=== PATIENT | female | born 1975 | race American Indian/Alaskan Native ===

== ENCOUNTER 2016-10-02 14:38 | Emergency (ER) | payer MEDICARE, OTHER ==
[2016-10-02 14:38] VITALS: BMI 23.2
[2016-10-02 15:00] VITALS: O2SAT 100
--- NOTE | 2016-10-02 15:43 | C.PDOC ---
History Of Present Illness 41 y/o female presents to the emergency department complaining of left chest wall discomfort x 3 days. Patient denies taking any medication for the pain. She denies trauma, shortness of breath, cough, nausea, diaphoresis, abdominal pain, fever, or other complaints. Time Seen by Provider: 10/02/16 15:37 Chief Complaint (Nursing): Chest Pain History Per: Patient History/Exam Limitations: no limitations Onset/Duration Of Symptoms: Days (3), Persistent Current Symptoms Are (Timing): Still Present Recent travel outside of the [place]: No Past Medical History Reviewed: Historical Data, Nursing Documentation, Vital Signs Vital Signs: Last Vital Signs Temp 98.2 F 10/02/16 16:16 Pulse 90 10/02/16 16:16 Resp 18 10/02/16 16:16 BP 159/99 H 10/02/16 16:16 Pulse Ox 100 10/02/16 16:16 - Medical History PMH: Anxiety, Asthma, Diabetes, Seizures (epileptic) Surgical History: Appendectomy - [facility] Procedures CENTRAL VENOUS CATHETER PLACEMENT WITH GUIDANCE (07/08/13) EXCIS DEBRIDE OF WOUND, INFECT, OR BURN (09/29/13) OTHER APPENDECTOMY (07/08/13) PERITONEAL LAVAGE (07/08/13) Family History: States: Unknown Family Hx - Social History Hx Tobacco Use: Yes Hx Alcohol Use: Yes Hx Substance Use: No - Immunization History Hx Tetanus Toxoid Vaccination: No Hx Influenza Vaccination: No Hx Pneumococcal Vaccination: No Review Of Systems Except As Marked, All Systems Reviewed And Found Negative. Constitutional: Negative for: Fever, Sweats Cardiovascular: Positive for: Chest Pain Respiratory: Negative for: Cough, Shortness of Breath Gastrointestinal: Negative for: Nausea, Abdominal Pain Physical Exam - Physical Exam Appears: Non-toxic, No Acute Distress Skin: Normal Color, Warm, Dry, No Rash Head: Atraumatic, Normacephalic Neck: Normal ROM Chest: Symmetrical, Tenderness (left ribs, in the area of T5 mid axillary line) , No Ecchymosis Cardiovascular: Rhythm Regular Respiratory: Normal Breath Sounds, No Rales, No Rhonchi, No Wheezing Gastrointestinal/Abdominal: Normal Exam, Soft, No Tenderness Back: Normal Inspection Extremity: Normal ROM Neurological/Psych: Oriented x3, Normal Speech, Normal Cognition ED Course And Treatment ECG: Interpreted By Me ECG Rhythm: Sinus Rhythm ECG Interpretation: Normal Rate From EC (bpm) O2 Sat by Pulse Oximetry: 100 (ra) Pulse Ox Interpretation: Normal Medical Decision Making Medical Decision Making: Plan: * Zestril PO, Toradol IM, Motrin PO L chest positionally and digitally reproducable c/w costochondritis. normal EKG poorly controlled HTN normal BUN/Creat- defer repeat labs today- start Lisinopril and f/u in 2-3 weeks for re-eval. Disposition Doctor Will See Patient In The: Office Counseled Patient/Family Regarding: Studies Performed, Diagnosis - Disposition Referrals: Antonio Armenta MD [Staff Provider] - Disposition: HOME/ ROUTINE Disposition Time: 15:57 Condition: GOOD Additional Instructions: costochondritis: ice packs to the L chest 1/2 hour per hour, nothing hot. Motrin/Advil 400-600 mg every 6 hours as needed Hypertension Take Lisinopril 20 mg daily (in the morning) and have your BP checked in 2-[address] Armenta. Prescriptions: Lisinopril [Prinivil] 20 mg PO DAILY #30 tablet Instructions: Costochondritis (ED), Hypertension (ED) - Clinical Impression Clinical Impression: Chest discomfort, Hypertension - Scribe Statement The provider has reviewed the documentation as recorded by the Scribe (Josette Zambrano) Provider Attestation: All medical record entries made by the Scribe were at my direction and personally dictated by me. I have reviewed the chart and agree that the record accurately reflects my personal performance of the history, physical exam, medical decision making, and the department course for this patient. I have also personally directed, reviewed, and agree with the discharge instructions and disposition.
[2016-10-02 16:17] VITALS: BP 159/99; PULSE 90; RESP 18; TEMP 98.2
--- NOTE | 2016-10-14 12:34 | CARD ---
APPROVED REPORT EKG Measurement Heart [id number] <Conclusion> Normal sinus rhythm Possible Left atrial enlargement Borderline ECG
== END 2016-10-02 16:15 | disposition home or self-care (01) ==
LOC: C.ER 14:38
DX: R07.89 Other chest pain (principal); I10 Essential (primary) hypertension
CPT/HCPCS: 96372; 99285; J1885

== ENCOUNTER 2017-08-05 17:52 | Inpatient (IN) | payer MEDICARE, OTHER ==
[2017-08-05 17:52] VITALS: BMI 23.2
--- NOTE | 2017-08-05 19:09 | C.PDOC ---
History Of Present Illness Patient is a 42 y/o female who presents to the ED with complaints of diffuse left sided abdominal pain for the last 1-2 months and chest pain since 2 hours ago. Patient denies any nausea, vomiting, or diarrhea. Patient describes abdominal pain as crampy and stabbing; admits chest pain is a dull, burning sensation. Patient has a Hx of DM that is not well controlled. Patient has no other physical complaints at this time. Time Seen by Provider: 08/05/17 19:09 Chief Complaint (Nursing): Abdominal Pain History Per: Patient History/Exam Limitations: no limitations Onset/Duration Of Symptoms: Hrs (chest pain 2 hours ago), Days (abdominal pain 1 -2 months) Current Symptoms Are (Timing): Still Present Severity: Moderate Pain Scale Rating Of: 4 Location Of Pain/Discomfort: Diffuse Quality Of Discomfort: Cramping, Stabbing Recent travel outside of the [place]: No Additional History Per: Patient Past Medical History Reviewed: Historical Data, Nursing Documentation, Vital Signs Vital Signs: Last Vital Signs Temp 98.8 F 08/05/17 18:15 Pulse 100 H 08/05/17 18:15 Resp 20 08/05/17 18:15 BP 175/115 H 08/05/17 18:15 Pulse Ox 100 08/05/17 20:02 - Medical History PMH: Anxiety, Asthma, Diabetes, Seizures (epileptic) Denies: Chronic Kidney Disease Surgical History: Appendectomy - [facility] Procedures CENTRAL VENOUS CATHETER PLACEMENT WITH GUIDANCE (07/08/13) EXCIS DEBRIDE OF WOUND, INFECT, OR BURN (09/29/13) OTHER APPENDECTOMY (07/08/13) PERITONEAL LAVAGE (07/08/13) Family History: States: No Known Family Hx - Social History Hx Tobacco Use: Yes Hx Alcohol Use: No Hx Substance Use: No - Immunization History Hx Tetanus Toxoid Vaccination: No Hx Influenza Vaccination: No Hx Pneumococcal Vaccination: No Review Of Systems Cardiovascular: Positive for: Chest Pain Gastrointestinal: Positive for: Abdominal Pain (left sided). Negative for: Nausea, Vomiting, Diarrhea Physical Exam - Physical Exam Appears: Well, Non-toxic, No Acute Distress Skin: Warm, Dry Head: Normacephalic Eye(s): bilateral: PERRL, EOMI Oral Mucosa: Moist Chest: Symmetrical Cardiovascular: Rhythm Regular, No Murmur Respiratory: No Rales, No Stridor, No Wheezing Gastrointestinal/Abdominal: Tenderness (to left flank), No Guarding, No Rebound , Other (tympanic to percussion) Extremity: Other (diabetic neuropathy to bilateral lower extremities) Neurological/Psych: Oriented x3 ED Course And Treatment - Laboratory Results Result Diagrams: 08/05/17 20:14 08/05/17 21:09 ECG: Interpreted By Me, Viewed By Me ECG Rhythm: Sinus Rhythm (99), Nonspecific Changes O2 Sat by Pulse Oximetry: 100 (room air) Pulse Ox Interpretation: Normal Progress Note: VBG, EKG, CXR, HCG urine, UA, and blood work ordered. Ecotrin, pepcid, and morphine administered. Disposition Discussed With Dr.: Antonio Mejia Comment: accepted the pt on his service and took over the care at 10:56 PM Doctor Will See Patient In The: Hospital Counseled Patient/Family Regarding: Studies Performed, Diagnosis - Disposition Disposition: HOSPITALIZED Disposition Time: 19:09 Condition: FAIR Forms: [employer] (Slovenian) - POA Present On Arrival: Poor Glycemic Control - Clinical Impression Clinical Impression: Abdominal pain, Chest pain, Hyperglycemia - Scribe Statement The provider has reviewed the documentation as recorded by the Scribe Ana Maria Ferrari All medical record entries made by the Scribe were at my direction and personally dictated by me. I have reviewed the chart and agree that the record accurately reflects my personal performance of the history, physical exam, medical decision making, and the department course for this patient. I have also personally directed, reviewed, and agree with the discharge instructions and disposition. Decision To Admit - Pt Status Changed To: Hospital Disposition Of: Inpatient - Admit Certification Admit to Inpatient:: After my assessment, the patient will require hospitalization for at least two midnights. This is because of the severity of symptoms shown, intensity of services needed, and/or the medical risk in this patient being treated as an outpatient. - InPatient: Physician Admission Certification:: After my assessment, the patient will require hospitalization for at least two midnights. This is because of the severity of symptoms shown, intensity of services needed, and/or the medical risk in this patient being treated as an outpatient. - . Bed Request Type: Telemetry Admitting Physician: Antonio Mejia Patient Diagnosis: Abdominal pain, Chest pain, Hyperglycemia
[2017-08-05] MEDS ORDERED: Aspirin 325 mg EC Tablets PO STA (19:36)
[2017-08-05 19:57] LABS: HCG,QUALITATIVE URINE NEGATIVE (NEGATIVE)
[2017-08-05 20:01] LABS: SQUAMOUS EPITHIAL 23 /hpf (0-5)
[2017-08-05 20:03] LABS: URINE BILIRUBIN NEGATIVE (NEGATIVE); URINE BLOOD LARGE (NEGATIVE); URINE CLARITY CLEAR (Clear); URINE COLOR YELLOW (YELLOW); URINE GLUCOSE (UA) >1000 mg/dL (Normal)
[2017-08-05 20:04] LABS: URINE LEUKOCYTE ESTERASE NEGATIVE Leu/uL (Negative); URINE NITRATE NEGATIVE (NEGATIVE); URINE PROTEIN > 300 mg/dL (NEGATIVE); URINE UROBILINOGEN 0.2 mg/dL (0.2-1.0)
[2017-08-05] MEDS ORDERED: Aspirin 325 mg EC Tablets PO ONE (20:05)
[2017-08-05] MEDS ORDERED: Morphine 4 MG/ML VIAL ONE (20:06)
[2017-08-05] MEDS ORDERED: HYDROmorphone 1 mg/ml ISec IVP ONE (20:15)
[2017-08-05 20:18] LABS: VENOUS BLOOD GAS BASE EXCESS -1.5 mmol/L (0.0-2.0); VENOUS BLOOD GAS PCO2 47 mmHg (40-60); VENOUS BLOOD GAS PO2 39 mm/Hg (30-55); VENOUS BLOOD PH 7.33 (7.32-7.43)
[2017-08-05 20:21] LABS: BASO # 0.1 K/uL (0.0-0.2); BASO % 0.4 % (0.0-2.0); EOS # 0.4 K/uL (0.0-0.7); EOS % 2.4 % (0.0-4.0); HEMOGLOBIN 12.7 g/dL (11.0-16.0); LYMPH # 3.5 K/uL (1.0-4.3); LYMPH % 23.7 % (20.0-40.0); MEAN CELL VOLUME 95.6 fL (81.0-99.0); MEAN CORPUSCULAR HEMOGLOBIN 33.9 pg (27.0-31.0); MEAN CORPUSCULAR HGB CONC 35.5 g/dL (33.0-37.0); MEAN PLATELET VOLUME 9.3 fL (7.2-11.7); MONO # 0.8 K/uL (0.0-0.8); MONO % 5.4 % (0.0-10.0); NEUT # 9.9 K/uL (1.8-7.0); NEUT % 68.1 % (50.0-75.0); RBC 3.74 Mil/uL (3.80-5.20); RED CELL DISTRIBUTION WIDTH 12.8 % (11.5-14.5); WHITE BLOOD COUNT 14.6 K/uL (4.8-10.8)
[2017-08-05 20:29] LABS: INR 0.9; PROTHROMBIN TIME 10.3 SECONDS (9.7-12.2)
[2017-08-05] MEDS ORDERED: Bacitracin 500 Units/gm Oint Foilpak UD ONE (21:06)
[2017-08-05 21:25] LABS: ALT/SGPT 17 U/L (9-52); AST/SGOT 13 U/L (14-36); BLOOD UREA NITROGEN 16 mg/dL (7-17); CALCIUM 8.5 mg/dl (8.6-10.4); GFR AFRICAN-AMERICAN > 60; GFR NON-AFRICAN AMERICAN > 60
[2017-08-05] MEDS ORDERED: Iohexol 300 100 ML IJ ONE (22:00)
--- NOTE | 2017-08-05 22:49 | CT ---
EXAM: CT Abdomen and Pelvis With Intravenous Contrast CLINICAL HISTORY: 42 years old, female; Pain; Abdominal pain; Flank; Left lower quadrant (llq); Additional info: Llq abd pain, HX of iddm TECHNIQUE: Axial computed tomography images of the abdomen and pelvis with intravenous contrast. All CT scans at this facility use one or more dose reduction techniques, viz.: automated exposure control; ma/kV adjustment per patient size (including targeted exams where dose is matched to indication; i.e. head); or iterative reconstruction technique. Coronal and sagittal reformatted images were created and reviewed. CONTRAST: 100 mL of omnipaque 300 administered intravenously. COMPARISON: CT - ABD PELVIS W/O PO OR IV CONT 2013-09-27 03:00 FINDINGS: Lower thorax: Mild atelectasis/scarring. ABDOMEN: Liver: Unremarkable. No mass. Gallbladder and bile ducts: No calcified stones. No ductal dilation. Pancreas: No ductal dilation. No mass. Spleen: Too small to characterize lesion. No splenomegaly. Adrenals: No mass. Kidneys and ureters: No mass. No hydronephrosis. Stomach and bowel: Moderate amount of stool within colon. No definite mural thickening. No obstruction. Appendix: No findings to suggest acute appendicitis. PELVIS: Bladder: Unremarkable. Reproductive: Probable involuting right ovarian cyst/follicle. ABDOMEN and PELVIS: Intraperitoneal space: No significant fluid collection. No free air. Bones/joints: No acute fracture. Soft tissues: Focal scarring with puckering right anterior abdominal wall. Tiny umbilical hernia containing fat. Vasculature: Minimal atherosclerotic disease of aorta. No aneurysm. Lymph nodes: No pathologically enlarged lymph nodes. IMPRESSION: 1. No definite acute intraabdominal abnormality. 2. Incidental/non-acute findings are described above.
[2017-08-05] MEDS ORDERED: ceFAZolin IV 1 gm in Dextrose 1 GM/50 ML BAG IVPB SCH (23:45)
[2017-08-06] MEDS ORDERED: (Novolog) Insulin Aspart, Recombinant 100 u/ml 10 ml vial SC ONE (02:56)
[2017-08-06] MEDS ORDERED: (Novolin R) Insulin Human Regular 100 units/ml vial ONE (03:02)
[2017-08-06 06:39] LABS: CK-MB 1.37 ng/mL (0.0-3.38); TROPONIN I 0.023 ng/mL (0.00-0.120)
[2017-08-06] MEDS ORDERED: (Novolog) Insulin Aspart, Recombinant 100 u/ml 10 ml vial SC SCH (07:30)
[2017-08-06] MEDS: ceFAZolin 1 GM in Sodium Chloride 0.9% 100 ML IVPB SCH ×2 (08:25→16:21)
--- NOTE | 2017-08-06 08:55 | RAD ---
Chest x-ray two view History: Chest pain. Comparison: None available. Findings: Mild venous congestion. Mild patchy increased markings at the right lung base. Clinical correlation. Tortuous aorta. Heart size within normal limits. Degenerative changes in the spine. Impression: Mild venous congestion. Mild patchy increased markings at the right lung base. Clinical correlation. Tortuous aorta.
[2017-08-06 09:39] LABS: BASO # 0.1 K/uL (0.0-0.2); BASO % 0.5 % (0.0-2.0); EOS # 0.3 K/uL (0.0-0.7); EOS % 2.6 % (0.0-4.0); HEMOGLOBIN 11.9 g/dL (11.0-16.0); LYMPH # 2.6 K/uL (1.0-4.3); LYMPH % 19.8 % (20.0-40.0); MEAN CELL VOLUME 94.4 fL (81.0-99.0); MEAN CORPUSCULAR HEMOGLOBIN 33.5 pg (27.0-31.0); MEAN CORPUSCULAR HGB CONC 35.5 g/dL (33.0-37.0); MEAN PLATELET VOLUME 8.4 fL (7.2-11.7); MONO # 0.8 K/uL (0.0-0.8); MONO % 5.8 % (0.0-10.0); NEUT # 9.4 K/uL (1.8-7.0); NEUT % 71.3 % (50.0-75.0); RBC 3.56 Mil/uL (3.80-5.20); RED CELL DISTRIBUTION WIDTH 12.7 % (11.5-14.5); WHITE BLOOD COUNT 13.2 K/uL (4.8-10.8)
[2017-08-06 09:55] LABS: ALB/GLOB RATIO 0.9 (1.0-2.1); ALBUMIN 2.8 g/dL (3.5-5.0); ALT/SGPT 21 U/L (9-52); AST/SGOT 14 U/L (14-36); BLOOD UREA NITROGEN 15 mg/dL (7-17); CALCIUM 8.5 mg/dl (8.6-10.4); GFR AFRICAN-AMERICAN > 60; GFR NON-AFRICAN AMERICAN > 60; HDL CHOLESTEROL 58 mg/dL (30-70)
--- NOTE | 2017-08-06 09:59 | CP.PCM.PN ---
Subjective - Date & Time of Evaluation Date of Evaluation: 08/06/17 Time of Evaluation: 09:50 - Subjective Subjective: PGY2 progress note for Dr. Mejia 42 year old female with past medical history of IDDM and seizure disorder presented to hospital for left upper quadrant abdominal pain ongoing for 1.5 months and substernal chest pain that began 2 hours prior to arriving to hospital. Patient states abd pain is intermittent and does not radiate anywhere else. Pain is not associated with food. Denies having any changes in bowel movements, D/C, blood in stool. Denies having any dysuria, increased urinary frequency. Patient describes sharp stabbing sensation located in substernal region. Patient has not experienced chest pain like this before. Pain improved after patient received dilaudid and aspirin. Patient denies having any SOB, lightheadedness, palpitations or injury to rib area. Patient also c/o vaginal abscess. PMHx; stated above Sx: abd surgery x2, appendectomy Social: smokes 1 ppd x 20 yrs., denies ETOH use or drug use Objective - Vital Signs/Intake and Output Vital Signs (last 24 hours): Temp Pulse Resp BP Pulse Ox 98.6 F 94 H 20 122/85 100 08/06/17 02:39 08/06/17 08:31 08/06/17 08:31 08/06/17 08:31 08/06/17 08:31 - Medications Medications: Current Medications Aspirin (Aspirin Chewable) 81 mg PO DAILY [facility] Last Admin: 08/06/17 09:23 Dose: 81 mg Clopidogrel Bisulfate (Plavix) 75 mg PO DAILY [facility] Last Admin: 08/06/17 09:23 Dose: 75 mg Gabapentin (Neurontin) 600 mg PO TID [facility] Last Admin: 08/06/17 09:22 Dose: 600 mg Home Med (Phenobarbital [Phenobarbital]) 60 mg PO TID [facility] Home Med (Levetiracetam [Keppra]) 1 tab PO BID [facility] Cefazolin Sodium 1 gm/ Sodium (Chloride) 100 mls @ 100 mls/hr IVPB Q8H [facility] Last Admin: 08/06/17 08:25 Dose: 100 mls/hr Insulin Aspart (Novolog Mix 70/30 (70/30 Units/Ml)) 25 units SC BID [facility] Insulin Aspart (Novolog) 0 unit SC ACHS [facility] PRN Reason: Protocol Insulin Glargine (Lantus) 50 unit SC HS [facility] Lisinopril (Zestril) 5 mg PO DAILY [facility] Rosuvastatin Calcium (Crestor) 5 mg PO HS [facility] - Labs Labs: 08/06/17 09:33 08/05/17 21:09 PT 10.3 SECONDS (9.7-12.2) 08/05/17 20:14 INR 0.9 08/05/17 20:14 APTT 28 SECONDS (21-34) 08/05/17 20:14 - Constitutional Appears: Non-toxic, No Acute Distress - Head Exam Head Exam: ATRAUMATIC - ENT Exam ENT Exam: Mucous Membranes Moist - Respiratory Exam Respiratory Exam: Clear to Ausculation Bilateral. absent: Accessory Muscle Use , Rales, Rhonchi, Wheezes, Respiratory Distress - Cardiovascular Exam Cardiovascular Exam: REGULAR RHYTHM, +S1, +S2. absent: Gallop, Rubs, Murmur - GI/Abdominal Exam GI & Abdominal Exam: Soft, Normal Bowel Sounds. absent: Distended, Firm, Guarding, Rigid, Tenderness, Organomegaly - Extremities Exam Extremities Exam: absent: Pedal Edema, Tenderness - Neurological Exam Neurological Exam: Alert, Awake, Oriented x3 - Psychiatric Exam Psychiatric exam: Normal Affect, Normal Mood - Skin Skin Exam: Dry, Intact, Normal Color, Warm Assessment and Plan - Assessment and Plan (Free Text) Assessment: 42 year old female with PMHx of IDDM and seizure disorder is admitted for chest pain, abdominal pain. Chest pain R/O ACS - Pt received aspirin in ED - LUNA score of 1 with 5% risk of ACS - troponins x 2 negative. EKG showed NSR - Cardio, Dr. Rosa is consulted. - Pt will have stress test this am - Continue Aspirin and plavix qd - Continue lisinopril and crestor qd Abd pain - CT scan of abd/pelvis negative - Will continue to monitor - Pain management with dilaudid 1 tab q4 IDDM - Accu check ACHS - Continue home insulin regimen: glargine 50 units SC HS, Novolog 70/30 25 units BID - HgbA1c is 12.1 HLD - Lipid panel checked showed TG 196, Chol 270, LDL 153 HDL 58 - Pt started on Crestor Seizure disorder - Continue home medication: Keppra and phenobarbital Vaginal abscess - [employer] consulted. awaiting recs - Continue cefazolin Prophylaxis - Protonix - lovenox Case discussed with attending. All management and orders per Dr. Mejia
[2017-08-06 10:00] LABS: LDL CHOLESTEROL 153 mg/dL (0-129)
[2017-08-06] MEDS ORDERED: PHENOBARBITAL 60 MG PO SCH (10:00)
[2017-08-06] MEDS ORDERED: LEVETIRACETAM PO SCH (10:00)
[2017-08-06] MEDS ORDERED: Oxycodone/Acetaminophen 5/325 mg Tab PO PRN (10:54)
--- NOTE | 2017-08-06 12:05 | CP.PCM.CON ---
History of Present Illness - History of Present Illness History of Present Illness: patient seen/examined. full consult to follow. likely not cardiac . will review echocardiogram Past Patient History - Past Medical History & Family History Past Medical History?: Yes - Past Social History Smoking Status: Heavy Smoker > 10 Cigarettes Daily - CARDIAC Other/Comment: QUESTIONABLE DVT LEG - PULMONARY Hx Asthma: Yes - NEUROLOGICAL Hx Seizures: Yes (epileptic) - HEENT Hx HEENT Problems: No - RENAL Hx Chronic Kidney Disease: No - ENDOCRINE/METABOLIC Hx Endocrine Disorders: Yes Hx Diabetes Mellitus Type 1: Yes - HEMATOLOGICAL/ONCOLOGICAL Hx Blood Disorders: No - INTEGUMENTARY Hx Dermatological Problems: Yes Other/Comment: DRAINING ABSCESS, ABDOMEN - MUSCULOSKELETAL/RHEUMATOLOGICAL Hx Musculoskeletal Disorders: Yes Other/Comment: Neuropathy - GASTROINTESTINAL Hx Gastrointestinal Disorders: No - GENITOURINARY/GYNECOLOGICAL Hx Genitourinary Disorders: No - PSYCHIATRIC Hx Anxiety: Yes Hx Substance Use: No - SURGICAL HISTORY Hx Appendectomy: Yes - ANESTHESIA Hx Anesthesia: Yes Hx Anesthesia Reactions: No Meds Allergies/Adverse Reactions: Allergies Allergy/AdvReac Type Severity Reaction Status Date / Time morphine Allergy Verified 08/05/17 20:23 - Medications Medications: Current Medications Aspirin (Aspirin Chewable) 81 mg PO DAILY [facility] Last Admin: 08/06/17 09:23 Dose: 81 mg Clopidogrel Bisulfate (Plavix) 75 mg PO DAILY [facility] Last Admin: 08/06/17 09:23 Dose: 75 mg Enoxaparin Sodium (Lovenox) 40 mg SC DAILY [facility] Famotidine (Pepcid) 20 mg PO BID [facility] Gabapentin (Neurontin) 600 mg PO TID [facility] Last Admin: 08/06/17 09:22 Dose: 600 mg Home Med (Phenobarbital [Phenobarbital]) 60 mg PO TID [facility] Home Med (Levetiracetam [Keppra]) 1 tab PO BID [facility] Cefazolin Sodium 1 gm/ Sodium (Chloride) 100 mls @ 100 mls/hr IVPB Q8H [facility] Last Admin: 08/06/17 08:25 Dose: 100 mls/hr Insulin Aspart (Novolog Mix 70/30 (70/30 Units/Ml)) 25 units SC BID [facility] Insulin Aspart (Novolog) 0 unit SC ACHS [facility] PRN Reason: Protocol Insulin Glargine (Lantus) 50 unit SC HS [facility] Lisinopril (Zestril) 5 mg PO DAILY [facility] Oxycodone/Acetaminophen (Percocet 5/325 Mg Tab) 1 tab PO Q4H PRN PRN Reason: Pain, moderate (4-7) Stop: 08/09/17 10:55 Rosuvastatin Calcium (Crestor) 5 mg PO HS [facility] Results - Vital Signs Recent Vital Signs: Last Vital Signs Temp 98.6 F 08/06/17 02:39 Pulse 94 H 08/06/17 08:31 Resp 20 08/06/17 08:31 BP 122/85 08/06/17 08:31 Pulse Ox 100 08/06/17 08:31 - Labs Result Diagrams: 08/06/17 09:33 08/06/17 09:33 Labs: Laboratory Results - last 24 hr 08/05/17 08/05/17 08/05/17 19:49 20:10 20:14 WBC 14.6 H RBC 3.74 L Hgb 12.7 Hct 35.8 MCV 95.6 D MCH 33.9 H MCHC 35.5 RDW 12.8 Plt Count 247 D MPV 9.3 Neut % (Auto) 68.1 Lymph % (Auto) 23.7 [place] % (Auto) 5.4 Eos % (Auto) 2.4 Baso % (Auto) 0.4 Neut # (Auto) 9.9 H Lymph # (Auto) 3.5 [place] # (Auto) 0.8 Eos # (Auto) 0.4 Baso # (Auto) 0.1 PT INR APTT pO2 39 VBG pH 7.33 VBG pCO2 47 VBG HCO3 23.0 VBG Total CO2 26.2 VBG O2 Sat (Calc) 79.0 H VBG Base Excess -1.5 L VBG Potassium 9.5 H* Sodium 132.0 Chloride 102.0 Glucose 387 H Lactate 1.2 FiO2 21.0 Crit Value Called To Dr roth Crit Value Called By [facility] Crit Value Read Back Y Blood Gas Notified Time 2017 Potassium Carbon Dioxide Anion Gap BUN Creatinine Est GFR ( Amer) Est GFR (Non-Af Amer) POC Glucose (mg/dL) Random Glucose Hemoglobin A1c Calcium Total Bilirubin AST ALT Alkaline Phosphatase Total Creatine Kinase CK-MB (Mass) Troponin I Total Protein Albumin Globulin Albumin/Globulin Ratio Triglycerides Cholesterol LDL Cholesterol Direct HDL Cholesterol Venous Blood Potassium 9.5 H* Urine Color Yellow Urine Clarity Clear Urine pH 6.0 Ur Specific [place] 1.020 Urine Protein > 300 Urine Glucose (UA) >1000 Urine Ketones Negative Urine Blood Large Urine Nitrate Negative Urine Bilirubin Negative Urine Urobilinogen 0.2 Ur Leukocyte Esterase Negative Urine WBC (Auto) 8 H Urine RBC (Auto) 42 H Ur Squamous Epith Cells 23 H Calcium Phos Renita (Auto) Rare Urine HCG, Qual Negative Serum Ketones 08/05/17 08/05/17 08/05/17 20:14 21:09 21:26 WBC RBC Hgb Hct MCV MCH MCHC RDW Plt Count MPV Neut % (Auto) Lymph % (Auto) [place] % (Auto) Eos % (Auto) Baso % (Auto) Neut # (Auto) Lymph # (Auto) [place] # (Auto) Eos # (Auto) Baso # (Auto) PT 10.3 INR 0.9 APTT 28 pO2 VBG pH VBG pCO2 VBG HCO3 VBG Total CO2 VBG O2 Sat (Calc) VBG Base Excess VBG Potassium Sodium 127 L Chloride 99 Glucose Lactate FiO2 Crit Value Called To Crit Value Called By Crit Value Read Back Blood Gas Notified Time Potassium 4.2 Carbon Dioxide 26 Anion Gap 7 L BUN 16 Creatinine 0.8 Est GFR ( Amer) > 60 Est GFR (Non-Af Amer) > 60 POC Glucose (mg/dL) Random Glucose 389 H Hemoglobin A1c Calcium 8.5 L Total Bilirubin 0.3 AST 13 L ALT 17 Alkaline Phosphatase 124 Total Creatine Kinase CK-MB (Mass) Troponin I 0.0170 Total Protein 6.2 L Albumin 3.0 L D Globulin 3.1 Albumin/Globulin Ratio 1.0 Triglycerides Cholesterol LDL Cholesterol Direct HDL Cholesterol Venous Blood Potassium Urine Color Urine Clarity Urine pH Ur Specific [place] Urine Protein Urine Glucose (UA) Urine Ketones Urine Blood Urine Nitrate Urine Bilirubin Urine Urobilinogen Ur Leukocyte Esterase Urine WBC (Auto) Urine RBC (Auto) Ur Squamous Epith Cells Calcium Phos Renita (Auto) Urine HCG, Qual Serum Ketones Negative 08/06/17 08/06/17 08/06/17 00:35 02:35 06:11 WBC RBC Hgb Hct MCV MCH MCHC RDW Plt Count MPV Neut % (Auto) Lymph % (Auto) [place] % (Auto) Eos % (Auto) Baso % (Auto) Neut # (Auto) Lymph # (Auto) [place] # (Auto) Eos # (Auto) Baso # (Auto) PT INR APTT pO2 VBG pH VBG pCO2 VBG HCO3 VBG Total CO2 VBG O2 Sat (Calc) VBG Base Excess VBG Potassium Sodium Chloride Glucose Lactate FiO2 Crit Value Called To Crit Value Called By Crit Value Read Back Blood Gas Notified Time Potassium Carbon Dioxide Anion Gap BUN Creatinine Est GFR ( Amer) Est GFR (Non-Af Amer) POC Glucose (mg/dL) 440 H* 407 H* Random Glucose Hemoglobin A1c Calcium Total Bilirubin AST ALT Alkaline Phosphatase Total Creatine Kinase 98 CK-MB (Mass) 1.37 Troponin I 0.0230 Total Protein Albumin Globulin Albumin/Globulin Ratio Triglycerides Cholesterol LDL Cholesterol Direct HDL Cholesterol Venous Blood Potassium Urine Color Urine Clarity Urine pH Ur Specific [place] Urine Protein Urine Glucose (UA) Urine Ketones Urine Blood Urine Nitrate Urine Bilirubin Urine Urobilinogen Ur Leukocyte Esterase Urine WBC (Auto) Urine RBC (Auto) Ur Squamous Epith Cells Calcium Phos Renita (Auto) Urine HCG, Qual Serum Ketones 08/06/17 08/06/17 08/06/17 07:49 09:33 09:33 WBC 13.2 H RBC 3.56 L Hgb 11.9 Hct 33.6 L MCV 94.4 MCH 33.5 H MCHC 35.5 RDW 12.7 Plt Count 231 MPV 8.4 Neut % (Auto) 71.3 Lymph % (Auto) 19.8 L [place] % (Auto) 5.8 Eos % (Auto) 2.6 Baso % (Auto) 0.5 Neut # (Auto) 9.4 H Lymph # (Auto) 2.6 [place] # (Auto) 0.8 Eos # (Auto) 0.3 Baso # (Auto) 0.1 PT INR APTT pO2 VBG pH VBG pCO2 VBG HCO3 VBG Total CO2 VBG O2 Sat (Calc) VBG Base Excess VBG Potassium Sodium 127 L Chloride 99 Glucose Lactate FiO2 Crit Value Called To Crit Value Called By Crit Value Read Back Blood Gas Notified Time Potassium 4.0 Carbon Dioxide 28 Anion Gap 5 L BUN 15 Creatinine 0.8 Est GFR ( Amer) > 60 Est GFR (Non-Af Amer) > 60 POC Glucose (mg/dL) 289 H Random Glucose 229 H Hemoglobin A1c Calcium 8.5 L Total Bilirubin 0.3 AST 14 ALT 21 Alkaline Phosphatase 112 Total Creatine Kinase CK-MB (Mass) Troponin I Total Protein 5.9 L Albumin 2.8 L Globulin 3.1 Albumin/Globulin Ratio 0.9 L Triglycerides 196 H Cholesterol 270 H LDL Cholesterol Direct 153 H HDL Cholesterol 58 Venous Blood Potassium Urine Color Urine Clarity Urine pH Ur Specific [place] Urine Protein Urine Glucose (UA) Urine Ketones Urine Blood Urine Nitrate Urine Bilirubin Urine Urobilinogen Ur Leukocyte Esterase Urine WBC (Auto) Urine RBC (Auto) Ur Squamous Epith Cells Calcium Phos Renita (Auto) Urine HCG, Qual Serum Ketones 08/06/17 09:33 WBC RBC Hgb Hct MCV MCH MCHC RDW Plt Count MPV Neut % (Auto) Lymph % (Auto) [place] % (Auto) Eos % (Auto) Baso % (Auto) Neut # (Auto) Lymph # (Auto) [place] # (Auto) Eos # (Auto) Baso # (Auto) PT INR APTT pO2 VBG pH VBG pCO2 VBG HCO3 VBG Total CO2 VBG O2 Sat (Calc) VBG Base Excess VBG Potassium Sodium Chloride Glucose Lactate FiO2 Crit Value Called To Crit Value Called By Crit Value Read Back Blood Gas Notified Time Potassium Carbon Dioxide Anion Gap BUN Creatinine Est GFR ( Amer) Est GFR (Non-Af Amer) POC Glucose (mg/dL) Random Glucose Hemoglobin A1c 12.1 H Calcium Total Bilirubin AST ALT Alkaline Phosphatase Total Creatine Kinase CK-MB (Mass) Troponin I Total Protein Albumin Globulin Albumin/Globulin Ratio Triglycerides Cholesterol LDL Cholesterol Direct HDL Cholesterol Venous Blood Potassium Urine Color Urine Clarity Urine pH Ur Specific [place] Urine Protein Urine Glucose (UA) Urine Ketones Urine Blood Urine Nitrate Urine Bilirubin Urine Urobilinogen Ur Leukocyte Esterase Urine WBC (Auto) Urine RBC (Auto) Ur Squamous Epith Cells Calcium Phos Renita (Auto) Urine HCG, Qual Serum Ketones
[2017-08-06] MEDS: (Novolog) Insulin Aspart, Recombinant 100 u/ml 10 ml vial SC SCH ×3 (13:28→21:42)
[2017-08-06] MEDS: (Novolog Mix 70/30) Insulin Aspart/Insulin Aspar 100 units/ml SC SCH ×2 (13:29→17:50)
[2017-08-06] MEDS: Tramadol 25 mg PO PRN (14:09)
--- NOTE | 2017-08-06 15:09 | CP.PCM.CON ---
<Hannah Vitale - Last Filed: 08/06/17 17:13> History of Present Illness - History of Present Illness History of Present Illness: CC: abscess on labia HPI: Patient is a 42 y/o F with PMHx of DMI, seizures and newly diagnosed HTN, HLD. She noticed a bump about 6 days ago on her left labia (in an area that she shaves). She said that the spot has gotten larger and more painful. Today it started to drain a greenish colored discharge. She says it causes her 10/10 pain and it is difficult for her to sit. She said this has happened once previously and she soaked the area with a warm washcloth and it drained/ resolved on its own. 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 thyroid nodules- biopsy benign, probably goiter, no medication new onset HLD, new onset HTN PSurg: appendectomy Social: smokes cigarettes 1ppd x 15 years, denies ETOH, drugs Allergies: Morphine Home meds: Insulin Glargine 50 sc HS Novolog 70-30 25 u sc BID Gabapentin 600mg po TID Phenobarbital 60mg po TID Keppra 1 tab po BID Review of Systems - Constitutional Constitutional: absent: Chills, Fever - Cardiovascular Cardiovascular: absent: Chest Pain, Dyspnea, Leg Edema, Palpitations - Respiratory Respiratory: absent: Cough, Dyspnea, Wheezing - Gastrointestinal Gastrointestinal: Abdominal Pain, Diarrhea. absent: Nausea, Vomiting - Genitourinary Genitourinary: absent: Difficulty Urinating, Dysuria, Hematuria, Urinary Frequency - Reproductive: Female Reproductive:Female: Menses 1-7 Days, Normal Menses - Menstruation Menstruation: Menses 1-7 Days, Normal Menses Past Patient History - Past Medical History & Family History Past Medical History?: Yes - Past Social History Smoking Status: Current Some Days Smoker - CARDIAC Other/Comment: QUESTIONABLE DVT LEG - PULMONARY Hx Asthma: Yes (asthma) - NEUROLOGICAL Hx Seizures: Yes (epileptic) - HEENT Hx HEENT Problems: No - RENAL Hx Chronic Kidney Disease: No - ENDOCRINE/METABOLIC Hx Endocrine Disorders: Yes Hx Diabetes Mellitus Type 1: Yes - HEMATOLOGICAL/ONCOLOGICAL Hx Blood Disorders: No - INTEGUMENTARY Hx Dermatological Problems: Yes Other/Comment: DRAINING ABSCESS, ABDOMEN - MUSCULOSKELETAL/RHEUMATOLOGICAL Hx Falls: Yes (epilepsy) - GASTROINTESTINAL Hx Gastrointestinal Disorders: No - GENITOURINARY/GYNECOLOGICAL Hx Genitourinary Disorders: No - PSYCHIATRIC Hx Anxiety: Yes Hx Substance Use: No - SURGICAL HISTORY Hx Appendectomy: Yes - ANESTHESIA Hx Anesthesia: Yes Hx Anesthesia Reactions: No Hx Malignant Hyperthermia: No Has any member of the family had a problem w/ anesthesia?: No Meds Allergies/Adverse Reactions: Allergies Allergy/AdvReac Type Severity Reaction Status Date / Time morphine Allergy Verified 08/05/17 20:23 - Medications Medications: Current Medications Amlodipine Besylate (Norvasc) 10 mg PO DAILY [facility] Last Admin: 08/06/17 14:13 Dose: 10 mg Aspirin (Aspirin Chewable) 81 mg PO DAILY [facility] Last Admin: 08/06/17 09:23 Dose: 81 mg Clopidogrel Bisulfate (Plavix) 75 mg PO DAILY [facility] Last Admin: 08/06/17 09:23 Dose: 75 mg Enoxaparin Sodium (Lovenox) 40 mg SC DAILY [facility] Famotidine (Pepcid) 20 mg PO BID [facility] Gabapentin (Neurontin) 600 mg PO TID [facility] Last Admin: 08/06/17 14:09 Dose: 600 mg Home Med (Phenobarbital [Phenobarbital]) 60 mg PO TID [facility] Cefazolin Sodium 1 gm/ Sodium (Chloride) 100 mls @ 100 mls/hr IVPB Q8H [facility] Last Admin: 08/06/17 08:25 Dose: 100 mls/hr Insulin Aspart (Novolog Mix 70/30 (70/30 Units/Ml)) 25 units SC BID [facility] Last Admin: 08/06/17 13:29 Dose: Not Given Insulin Aspart (Novolog) 0 unit SC ACHS [facility] PRN Reason: Protocol Last Admin: 08/06/17 13:28 Dose: 6 unit Insulin Glargine (Lantus) 50 unit SC [facility] Levetiracetam (Keppra) 750 mg PO BID [facility] Lisinopril (Zestril) 10 mg PO DAILY [facility] Rosuvastatin Calcium (Crestor) 5 mg PO HS [facility] Tramadol HCl (Ultram) 25 mg PO TID PRN PRN Reason: Pain, moderate (4-7) Last Admin: 08/06/17 14:09 Dose: 25 mg Physical Exam - Constitutional Appears: Non-toxic, No Acute Distress - Head Exam Head Exam: ATRAUMATIC, NORMAL INSPECTION, NORMOCEPHALIC - Eye Exam Eye Exam: EOMI, Normal appearance - Respiratory Exam Respiratory Exam: Clear to Auscultation Bilateral, NORMAL BREATHING PATTERN. absent: Rales, Rhonchi, Wheezes, Respiratory Distress, Stridor - Cardiovascular Exam Cardiovascular Exam: REGULAR RHYTHM, RRR, +S1, +S2 - GI/Abdominal Exam GI & Abdominal Exam: Normal Bowel Sounds, Soft, Tenderness. absent: Guarding - Exam External exam: Lesions (inferior firm left labial abscess about 6 cm x 2 cm with purulent drainage ) - Extremities Exam Extremities exam: Positive for: normal inspection. Negative for: pedal edema, tenderness - Neurological Exam Neurological exam: Alert, Oriented x3 - Psychiatric Exam Psychiatric exam: Normal Affect, Normal Mood - Skin Skin Exam: Intact, Normal Color, Warm Results - Vital Signs Recent Vital Signs: Last Vital Signs Temp 98.6 F 08/06/17 13:16 Pulse 97 H 08/06/17 14:00 Resp 20 08/06/17 13:16 BP 180/100 H 08/06/17 13:16 Pulse Ox 95 08/06/17 13:16 - Labs Result Diagrams: 08/06/17 09:33 08/06/17 09:33 Labs: Laboratory Results - last 24 hr 08/05/17 08/05/17 08/05/17 19:49 20:10 20:14 WBC 14.6 H RBC 3.74 L Hgb 12.7 Hct 35.8 MCV 95.6 D MCH 33.9 H MCHC 35.5 RDW 12.8 Plt Count 247 D MPV 9.3 Neut % (Auto) 68.1 Lymph % (Auto) 23.7 [place] % (Auto) 5.4 Eos % (Auto) 2.4 Baso % (Auto) 0.4 Neut # (Auto) 9.9 H Lymph # (Auto) 3.5 [place] # (Auto) 0.8 Eos # (Auto) 0.4 Baso # (Auto) 0.1 PT INR APTT pO2 39 VBG pH 7.33 VBG pCO2 47 VBG HCO3 23.0 VBG Total CO2 26.2 VBG O2 Sat (Calc) 79.0 H VBG Base Excess -1.5 L VBG Potassium 9.5 H* Sodium 132.0 Chloride 102.0 Glucose 387 H Lactate 1.2 FiO2 21.0 Crit Value Called To Dr roth Crit Value Called By [facility] Crit Value Read Back Y Blood Gas Notified Time 2017 Potassium Carbon Dioxide Anion Gap BUN Creatinine Est GFR ( Amer) Est GFR (Non-Af Amer) POC Glucose (mg/dL) Random Glucose Hemoglobin A1c Calcium Total Bilirubin AST ALT Alkaline Phosphatase Total Creatine Kinase CK-MB (Mass) Troponin I Total Protein Albumin Globulin Albumin/Globulin Ratio Triglycerides Cholesterol LDL Cholesterol Direct HDL Cholesterol Venous Blood Potassium 9.5 H* Urine Color Yellow Urine Clarity Clear Urine pH 6.0 Ur Specific [place] 1.020 Urine Protein > 300 Urine Glucose (UA) >1000 Urine Ketones Negative Urine Blood Large Urine Nitrate Negative Urine Bilirubin Negative Urine Urobilinogen 0.2 Ur Leukocyte Esterase Negative Urine WBC (Auto) 8 H Urine RBC (Auto) 42 H Ur Squamous Epith Cells 23 H Calcium Phos Renita (Auto) Rare Urine HCG, Qual Negative Serum Ketones 08/05/17 08/05/17 08/05/17 20:14 21:09 21:26 WBC RBC Hgb Hct MCV MCH MCHC RDW Plt Count MPV Neut % (Auto) Lymph % (Auto) [place] % (Auto) Eos % (Auto) Baso % (Auto) Neut # (Auto) Lymph # (Auto) [place] # (Auto) Eos # (Auto) Baso # (Auto) PT 10.3 INR 0.9 APTT 28 pO2 VBG pH VBG pCO2 VBG HCO3 VBG Total CO2 VBG O2 Sat (Calc) VBG Base Excess VBG Potassium Sodium 127 L Chloride 99 Glucose Lactate FiO2 Crit Value Called To Crit Value Called By Crit Value Read Back Blood Gas Notified Time Potassium 4.2 Carbon Dioxide 26 Anion Gap 7 L BUN 16 Creatinine 0.8 Est GFR ( Amer) > 60 Est GFR (Non-Af Amer) > 60 POC Glucose (mg/dL) Random Glucose 389 H Hemoglobin A1c Calcium 8.5 L Total Bilirubin 0.3 AST 13 L ALT 17 Alkaline Phosphatase 124 Total Creatine Kinase CK-MB (Mass) Troponin I 0.0170 Total Protein 6.2 L Albumin 3.0 L D Globulin 3.1 Albumin/Globulin Ratio 1.0 Triglycerides Cholesterol LDL Cholesterol Direct HDL Cholesterol Venous Blood Potassium Urine Color Urine Clarity Urine pH Ur Specific [place] Urine Protein Urine Glucose (UA) Urine Ketones Urine Blood Urine Nitrate Urine Bilirubin Urine Urobilinogen Ur Leukocyte Esterase Urine WBC (Auto) Urine RBC (Auto) Ur Squamous Epith Cells Calcium Phos Renita (Auto) Urine HCG, Qual Serum Ketones Negative 08/06/17 08/06/17 08/06/17 00:35 02:35 06:11 WBC RBC Hgb Hct MCV MCH MCHC RDW Plt Count MPV Neut % (Auto) Lymph % (Auto) [place] % (Auto) Eos % (Auto) Baso % (Auto) Neut # (Auto) Lymph # (Auto) [place] # (Auto) Eos # (Auto) Baso # (Auto) PT INR APTT pO2 VBG pH VBG pCO2 VBG HCO3 VBG Total CO2 VBG O2 Sat (Calc) VBG Base Excess VBG Potassium Sodium Chloride Glucose Lactate FiO2 Crit Value Called To Crit Value Called By Crit Value Read Back Blood Gas Notified Time Potassium Carbon Dioxide Anion Gap BUN Creatinine Est GFR ( Amer) Est GFR (Non-Af Amer) POC Glucose (mg/dL) 440 H* 407 H* Random Glucose Hemoglobin A1c Calcium Total Bilirubin AST ALT Alkaline Phosphatase Total Creatine Kinase 98 CK-MB (Mass) 1.37 Troponin I 0.0230 Total Protein Albumin Globulin Albumin/Globulin Ratio Triglycerides Cholesterol LDL Cholesterol Direct HDL Cholesterol Venous Blood Potassium Urine Color Urine Clarity Urine pH Ur Specific [place] Urine Protein Urine Glucose (UA) Urine Ketones Urine Blood Urine Nitrate Urine Bilirubin Urine Urobilinogen Ur Leukocyte Esterase Urine WBC (Auto) Urine RBC (Auto) Ur Squamous Epith Cells Calcium Phos Renita (Auto) Urine HCG, Qual Serum Ketones 08/06/17 08/06/17 08/06/17 07:49 09:33 09:33 WBC 13.2 H RBC 3.56 L Hgb 11.9 Hct 33.6 L MCV 94.4 MCH 33.5 H MCHC 35.5 RDW 12.7 Plt Count 231 MPV 8.4 Neut % (Auto) 71.3 Lymph % (Auto) 19.8 L [place] % (Auto) 5.8 Eos % (Auto) 2.6 Baso % (Auto) 0.5 Neut # (Auto) 9.4 H Lymph # (Auto) 2.6 [place] # (Auto) 0.8 Eos # (Auto) 0.3 Baso # (Auto) 0.1 PT INR APTT pO2 VBG pH VBG pCO2 VBG HCO3 VBG Total CO2 VBG O2 Sat (Calc) VBG Base Excess VBG Potassium Sodium 127 L Chloride 99 Glucose Lactate FiO2 Crit Value Called To Crit Value Called By Crit Value Read Back Blood Gas Notified Time Potassium 4.0 Carbon Dioxide 28 Anion Gap 5 L BUN 15 Creatinine 0.8 Est GFR ( Amer) > 60 Est GFR (Non-Af Amer) > 60 POC Glucose (mg/dL) 289 H Random Glucose 229 H Hemoglobin A1c Calcium 8.5 L Total Bilirubin 0.3 AST 14 ALT 21 Alkaline Phosphatase 112 Total Creatine Kinase CK-MB (Mass) Troponin I Total Protein 5.9 L Albumin 2.8 L Globulin 3.1 Albumin/Globulin Ratio 0.9 L Triglycerides 196 H Cholesterol 270 H LDL Cholesterol Direct 153 H HDL Cholesterol 58 Venous Blood Potassium Urine Color Urine Clarity Urine pH Ur Specific [place] Urine Protein Urine Glucose (UA) Urine Ketones Urine Blood Urine Nitrate Urine Bilirubin Urine Urobilinogen Ur Leukocyte Esterase Urine WBC (Auto) Urine RBC (Auto) Ur Squamous Epith Cells Calcium Phos Renita (Auto) Urine HCG, Qual Serum Ketones 08/06/17 09:33 WBC RBC Hgb Hct MCV MCH MCHC RDW Plt Count MPV Neut % (Auto) Lymph % (Auto) [place] % (Auto) Eos % (Auto) Baso % (Auto) Neut # (Auto) Lymph # (Auto) [place] # (Auto) Eos # (Auto) Baso # (Auto) PT INR APTT pO2 VBG pH VBG pCO2 VBG HCO3 VBG Total CO2 VBG O2 Sat (Calc) VBG Base Excess VBG Potassium Sodium Chloride Glucose Lactate FiO2 Crit Value Called To Crit Value Called By Crit Value Read Back Blood Gas Notified Time Potassium Carbon Dioxide Anion Gap BUN Creatinine Est GFR ( Amer) Est GFR (Non-Af Amer) POC Glucose (mg/dL) Random Glucose Hemoglobin A1c 12.1 H Calcium Total Bilirubin AST ALT Alkaline Phosphatase Total Creatine Kinase CK-MB (Mass) Troponin I Total Protein Albumin Globulin Albumin/Globulin Ratio Triglycerides Cholesterol LDL Cholesterol Direct HDL Cholesterol Venous Blood Potassium Urine Color Urine Clarity Urine pH Ur Specific [place] Urine Protein Urine Glucose (UA) Urine Ketones Urine Blood Urine Nitrate Urine Bilirubin Urine Urobilinogen Ur Leukocyte Esterase Urine WBC (Auto) Urine RBC (Auto) Ur Squamous Epith Cells Calcium Phos Renita (Auto) Urine HCG, Qual Serum Ketones Assessment & Plan - Assessment and Plan (Free Text) Assessment: Patient is a 42 y/o F with PMHx of DMI, seizures and newly diagnosed HTN, HLD with left labial abscess. 1. afebrile 2. draining, sitz bath TID 3. consult ID, Dr. Umanzor, for antibiotic management, help appreciated 4. Zosyn 3.375 q8h started on 08/06/17 5. consider OR for I&D pending medical clearance 6. continue medical management as per primary medicine team 7. Discussed with Dr. Luis Alfredo Vitale, PGY1 <Julia Lobato - Last Filed: 08/07/17 02:56> Meds - Medications Medications: Current Medications Amlodipine Besylate (Norvasc) 10 mg PO DAILY [facility] Last Admin: 08/06/17 14:13 Dose: 10 mg Aspirin (Aspirin Chewable) 81 mg PO DAILY [facility] Last Admin: 08/06/17 09:23 Dose: 81 mg Clopidogrel Bisulfate (Plavix) 75 mg PO DAILY [facility] Last Admin: 08/06/17 09:23 Dose: 75 mg Enoxaparin Sodium (Lovenox) 40 mg SC DAILY [facility] Famotidine (Pepcid) 20 mg PO BID [facility] Last Admin: 08/06/17 17:49 Dose: 20 mg Gabapentin (Neurontin) 600 mg PO TID [facility] Last Admin: 08/06/17 17:49 Dose: 600 mg Hydromorphone HCl (Dilaudid) 1 mg IVP Q6H PRN PRN Reason: Pain, severe (8-10) Last Admin: 08/07/17 00:29 Dose: 1 mg Cefazolin Sodium 1 gm/ Sodium (Chloride) 100 mls @ 100 mls/hr IVPB Q8H [facility] Last Admin: 08/07/17 00:34 Dose: 100 mls/hr Piperacillin Sod/Tazobactam Sod (Zosyn 3.375 Gm Iv Premix) 3.375 gm in 50 mls @ 100 mls/hr IVPB Q8H [facility] Last Admin: 08/06/17 23:59 Dose: 100 mls/hr Insulin Aspart (Novolog Mix 70/30 (70/30 Units/Ml)) 25 units SC BID [facility] Last Admin: 08/06/17 17:50 Dose: 25 units Insulin Aspart (Novolog) 0 unit SC ACHS [facility] PRN Reason: Protocol Last Admin: 08/06/17 21:42 Dose: Not Given Insulin Glargine (Lantus) 50 unit SC [facility] Last Admin: 08/06/17 21:55 Dose: Not Given Levetiracetam (Keppra) 750 mg PO BID [facility] Last Admin: 08/06/17 17:49 Dose: 750 mg Lisinopril (Zestril) 10 mg PO DAILY [facility] Phenobarbital (Phenobarbital Tab) 64.8 mg PO TID [facility] Last Admin: 08/06/17 18:09 Dose: Not Given Rosuvastatin Calcium (Crestor) 5 mg PO [facility] Last Admin: 08/06/17 21:54 Dose: 5 mg Tramadol HCl (Ultram) 25 mg PO TID PRN PRN Reason: Pain, moderate (4-7) Last Admin: 08/06/17 14:09 Dose: 25 mg Results - Vital Signs Recent Vital Signs: Last Vital Signs Temp 98 F 08/06/17 23:30 Pulse 88 08/06/17 23:30 Resp 20 08/06/17 23:30 BP 131/87 08/06/17 23:30 Pulse Ox 98 08/06/17 23:30 - Labs Result Diagrams: 08/06/17 09:33 08/06/17 09:33 Labs: Laboratory Results - last 24 hr 08/06/17 08/06/17 08/06/17 02:35 06:11 07:49 WBC RBC Hgb Hct MCV MCH MCHC RDW Plt Count MPV Neut % (Auto) Lymph % (Auto) [place] % (Auto) Eos % (Auto) Baso % (Auto) Neut # (Auto) Lymph # (Auto) [place] # (Auto) Eos # (Auto) Baso # (Auto) Sodium Potassium Chloride Carbon Dioxide Anion Gap BUN Creatinine Est GFR ( Amer) Est GFR (Non-Af Amer) POC Glucose (mg/dL) 407 H* 289 H Random Glucose Hemoglobin A1c Calcium Total Bilirubin AST ALT Alkaline Phosphatase Total Creatine Kinase 98 CK-MB (Mass) 1.37 Troponin I 0.0230 Total Protein Albumin Globulin Albumin/Globulin Ratio Triglycerides Cholesterol LDL Cholesterol Direct HDL Cholesterol 08/06/17 08/06/17 08/06/17 09:33 09:33 09:33 WBC 13.2 H RBC 3.56 L Hgb 11.9 Hct 33.6 L MCV 94.4 MCH 33.5 H MCHC 35.5 RDW 12.7 Plt Count 231 MPV 8.4 Neut % (Auto) 71.3 Lymph % (Auto) 19.8 L [place] % (Auto) 5.8 Eos % (Auto) 2.6 Baso % (Auto) 0.5 Neut # (Auto) 9.4 H Lymph # (Auto) 2.6 [place] # (Auto) 0.8 Eos # (Auto) 0.3 Baso # (Auto) 0.1 Sodium 127 L Potassium 4.0 Chloride 99 Carbon Dioxide 28 Anion Gap 5 L BUN 15 Creatinine 0.8 Est GFR ( Amer) > 60 Est GFR (Non-Af Amer) > 60 POC Glucose (mg/dL) Random Glucose 229 H Hemoglobin A1c 12.1 H Calcium 8.5 L Total Bilirubin 0.3 AST 14 ALT 21 Alkaline Phosphatase 112 Total Creatine Kinase CK-MB (Mass) Troponin I Total Protein 5.9 L Albumin 2.8 L Globulin 3.1 Albumin/Globulin Ratio 0.9 L Triglycerides 196 H Cholesterol 270 H LDL Cholesterol Direct 153 H HDL Cholesterol 58 08/06/17 08/06/17 08/06/17 12:29 15:52 19:04 WBC RBC Hgb Hct MCV MCH MCHC RDW Plt Count MPV Neut % (Auto) Lymph % (Auto) [place] % (Auto) Eos % (Auto) Baso % (Auto) Neut # (Auto) Lymph # (Auto) [place] # (Auto) Eos # (Auto) Baso # (Auto) Sodium Potassium Chloride Carbon Dioxide Anion Gap BUN Creatinine Est GFR ( Amer) Est GFR (Non-Af Amer) POC Glucose (mg/dL) 281 H 242 H Random Glucose Hemoglobin A1c Calcium Total Bilirubin AST ALT Alkaline Phosphatase Total Creatine Kinase 117 CK-MB (Mass) 1.37 Troponin I 0.0220 Total Protein Albumin Globulin Albumin/Globulin Ratio Triglycerides Cholesterol LDL Cholesterol Direct HDL Cholesterol 08/06/17 21:26 WBC RBC Hgb Hct MCV MCH MCHC RDW Plt Count MPV Neut % (Auto) Lymph % (Auto) [place] % (Auto) Eos % (Auto) Baso % (Auto) Neut # (Auto) Lymph # (Auto) [place] # (Auto) Eos # (Auto) Baso # (Auto) Sodium Potassium Chloride Carbon Dioxide Anion Gap BUN Creatinine Est GFR ( Amer) Est GFR (Non-Af Amer) POC Glucose (mg/dL) 117 H Random Glucose Hemoglobin A1c Calcium Total Bilirubin AST ALT Alkaline Phosphatase Total Creatine Kinase CK-MB (Mass) Troponin I Total Protein Albumin Globulin Albumin/Globulin Ratio Triglycerides Cholesterol LDL Cholesterol Direct HDL Cholesterol Attending/Attestation - Attestation Notes (Text): 08/07/17 02:46 I agree with the events as described above.. Patient was seen with the Resident. Patient seen 08/06/2017 on two occasions: 1) approximately 1600 hours. At that time, cultures for aerobic and anerobic organism, and GC/chlamydia were obtained 2) patient requested I&D of abscess. Case was discussed with medical team: patient is not cleared for surgery from cardiac standpoint. At approximately 2200 hours, this was discussed with the patient. Infectious Disease was consulted - antibiotics changed. Also, Sitz bath were initiated. This was discussed with the patient as the best treatment regimen. Patient expressed an understanding and agrees. Thank you for the pleasure of this consultation.
[2017-08-06] MEDS ORDERED: Piperacillin/Tazobact 3.375 GM in Sodium Chloride 100 ML IVPB SCH (16:00)
[2017-08-06] MEDS: Piperacill/Tazo 3.375gm in Dex 3.375 GM/50 ML BAG IVPB SCH ×2 (18:05→23:59)
--- NOTE | 2017-08-06 18:49 | CARD ---
APPROVED REPORT EXAM: Two-dimensional and M-mode echocardiogram with Doppler and color Doppler. Other Information Quality : GoodRhythm : INDICATION Chest Pain RISK FACTORS Hypertension Diabetes 2D DIMENSIONS IVSd0.9 (0.7-1.1cm)LVDd4.3 (3.9-5.9cm) PWd1.1 (0.7-1.1cm) M-Mode DIMENSIONS Left Atrium (MM)2.97 (2.5-4.0cm)Aortic Root2.93 (2.2-3.7cm) Aortic Cusp Exc.1.96 (1.5-2.0cm) Mitral Valve MV E Qqlxojus72.3cm/sMV A Mvqqwqpz58.3cm/sE/A ratio1.0 TDI E/Lateral E'0.0E/Medial E'0.0 Tricuspid Valve TR Peak [id number]/sTR Peak [id number] LEFT VENTRICLE The left ventricle is normal size. There is normal left ventricular wall thickness. The left ventricular function is normal. The left ventricular ejection fraction is within the normal range. There is normal LV segmental wall motion. The left ventricular diastolic function is normal. RIGHT VENTRICLE The right ventricle is normal size. The right ventricular systolic function is normal. ATRIA The left atrium is borderline dilated. The right atrium is borderline dilated. AORTIC VALVE The aortic valve is normal in structure. No aortic regurgitation is present. MITRAL VALVE The mitral valve is normal in structure. There is no mitral valve regurgitation noted. TRICUSPID VALVE The tricuspid valve is normal in structure. There is mild tricuspid regurgitation. Right ventricular systolic pressure is estimated at less than 37 mmHg. There is mild pulmonary hypertension. PULMONIC VALVE The pulmonary valve is normal in structure. GREAT VESSELS The aortic root is normal in size. The IVC is normal in size and collapses >50% with inspiration. PERICARDIAL EFFUSION Questionable trace pericardial effusion. <Conclusion> Normal bi-ventricular function. There is mild tricuspid regurgitation. Right ventricular systolic pressure is estimated - 37 mmHg compatible with mild pulmonary hypertension. Questionable trace pericardial effusion.
[2017-08-06 19:29] LABS: CK-MB 1.37 ng/mL (0.0-3.38); TROPONIN I 0.022 ng/mL (0.00-0.120)
--- NOTE | 2017-08-06 20:28 | CP.PCM.CON ---
Past Patient History - Past Medical History & Family History Past Medical History?: Yes - Past Social History Smoking Status: Current Some Days Smoker - CARDIAC Other/Comment: QUESTIONABLE DVT LEG - PULMONARY Hx Asthma: Yes (asthma) - NEUROLOGICAL Hx Seizures: Yes (epileptic) - HEENT Hx HEENT Problems: No - RENAL Hx Chronic Kidney Disease: No - ENDOCRINE/METABOLIC Hx Endocrine Disorders: Yes Hx Diabetes Mellitus Type 1: Yes - HEMATOLOGICAL/ONCOLOGICAL Hx Blood Disorders: No - INTEGUMENTARY Hx Dermatological Problems: Yes Other/Comment: DRAINING ABSCESS, ABDOMEN - MUSCULOSKELETAL/RHEUMATOLOGICAL Hx Falls: Yes (epilepsy) - GASTROINTESTINAL Hx Gastrointestinal Disorders: No - GENITOURINARY/GYNECOLOGICAL Hx Genitourinary Disorders: No - PSYCHIATRIC Hx Anxiety: Yes Hx Substance Use: No - SURGICAL HISTORY Hx Appendectomy: Yes - ANESTHESIA Hx Anesthesia: Yes Hx Anesthesia Reactions: No Hx Malignant Hyperthermia: No Has any member of the family had a problem w/ anesthesia?: No Meds Allergies/Adverse Reactions: Allergies Allergy/AdvReac Type Severity Reaction Status Date / Time morphine Allergy Verified 08/05/17 20:23 - Medications Medications: Current Medications Amlodipine Besylate (Norvasc) 10 mg PO DAILY [facility] Last Admin: 08/06/17 14:13 Dose: 10 mg Aspirin (Aspirin Chewable) 81 mg PO DAILY [facility] Last Admin: 08/06/17 09:23 Dose: 81 mg Clopidogrel Bisulfate (Plavix) 75 mg PO DAILY [facility] Last Admin: 08/06/17 09:23 Dose: 75 mg Enoxaparin Sodium (Lovenox) 40 mg SC DAILY [facility] Famotidine (Pepcid) 20 mg PO BID [facility] Last Admin: 08/06/17 17:49 Dose: 20 mg Gabapentin (Neurontin) 600 mg PO TID [facility] Last Admin: 08/06/17 17:49 Dose: 600 mg Hydromorphone HCl (Dilaudid) 1 mg IVP Q6H PRN PRN Reason: Pain, severe (8-10) Last Admin: 08/06/17 16:19 Dose: 1 mg Cefazolin Sodium 1 gm/ Sodium (Chloride) 100 mls @ 100 mls/hr IVPB Q8H [facility] Last Admin: 08/06/17 16:21 Dose: 100 mls/hr Piperacillin Sod/Tazobactam Sod (Zosyn 3.375 Gm Iv Premix) 3.375 gm in 50 mls @ 100 mls/hr IVPB Q8H [facility] Last Admin: 08/06/17 18:05 Dose: 100 mls/hr Insulin Aspart (Novolog Mix 70/30 (70/30 Units/Ml)) 25 units SC BID [facility] Last Admin: 08/06/17 17:50 Dose: 25 units Insulin Aspart (Novolog) 0 unit SC ACHS [facility] PRN Reason: Protocol Last Admin: 08/06/17 17:50 Dose: 4 unit Insulin Glargine (Lantus) 50 unit SC HS [facility] Levetiracetam (Keppra) 750 mg PO BID [facility] Last Admin: 08/06/17 17:49 Dose: 750 mg Lisinopril (Zestril) 10 mg PO DAILY [facility] Phenobarbital (Phenobarbital Tab) 64.8 mg PO TID [facility] Last Admin: 08/06/17 18:09 Dose: Not Given Rosuvastatin Calcium (Crestor) 5 mg PO HS [facility] Tramadol HCl (Ultram) 25 mg PO TID PRN PRN Reason: Pain, moderate (4-7) Last Admin: 08/06/17 14:09 Dose: 25 mg Results - Vital Signs Recent Vital Signs: Last Vital Signs Temp 99.2 F 08/06/17 15:32 Pulse 103 H 08/06/17 15:32 Resp 20 08/06/17 15:32 BP 160/93 H 08/06/17 15:32 Pulse Ox 100 08/06/17 15:32 - Labs Result Diagrams: 08/06/17 09:33 08/06/17 09:33 Labs: Laboratory Results - last 24 hr 08/05/17 08/05/17 08/05/17 20:14 20:14 21:09 WBC 14.6 H RBC 3.74 L Hgb 12.7 Hct 35.8 MCV 95.6 D MCH 33.9 H MCHC 35.5 RDW 12.8 Plt Count 247 D MPV 9.3 Neut % (Auto) 68.1 Lymph % (Auto) 23.7 [place] % (Auto) 5.4 Eos % (Auto) 2.4 Baso % (Auto) 0.4 Neut # (Auto) 9.9 H Lymph # (Auto) 3.5 [place] # (Auto) 0.8 Eos # (Auto) 0.4 Baso # (Auto) 0.1 PT 10.3 INR 0.9 APTT 28 Sodium 127 L Potassium 4.2 Chloride 99 Carbon Dioxide 26 Anion Gap 7 L BUN 16 Creatinine 0.8 Est GFR ( Amer) > 60 Est GFR (Non-Af Amer) > 60 POC Glucose (mg/dL) Random Glucose 389 H Hemoglobin A1c Calcium 8.5 L Total Bilirubin 0.3 AST 13 L ALT 17 Alkaline Phosphatase 124 Total Creatine Kinase CK-MB (Mass) Troponin I 0.0170 Total Protein 6.2 L Albumin 3.0 L D Globulin 3.1 Albumin/Globulin Ratio 1.0 Triglycerides Cholesterol LDL Cholesterol Direct HDL Cholesterol Serum Ketones 08/05/17 08/06/17 08/06/17 21:26 00:35 02:35 WBC RBC Hgb Hct MCV MCH MCHC RDW Plt Count MPV Neut % (Auto) Lymph % (Auto) [place] % (Auto) Eos % (Auto) Baso % (Auto) Neut # (Auto) Lymph # (Auto) [place] # (Auto) Eos # (Auto) Baso # (Auto) PT INR APTT Sodium Potassium Chloride Carbon Dioxide Anion Gap BUN Creatinine Est GFR ( Amer) Est GFR (Non-Af Amer) POC Glucose (mg/dL) 440 H* 407 H* Random Glucose Hemoglobin A1c Calcium Total Bilirubin AST ALT Alkaline Phosphatase Total Creatine Kinase CK-MB (Mass) Troponin I Total Protein Albumin Globulin Albumin/Globulin Ratio Triglycerides Cholesterol LDL Cholesterol Direct HDL Cholesterol Serum Ketones Negative 08/06/17 08/06/17 08/06/17 06:11 07:49 09:33 WBC 13.2 H RBC 3.56 L Hgb 11.9 Hct 33.6 L MCV 94.4 MCH 33.5 H MCHC 35.5 RDW 12.7 Plt Count 231 MPV 8.4 Neut % (Auto) 71.3 Lymph % (Auto) 19.8 L [place] % (Auto) 5.8 Eos % (Auto) 2.6 Baso % (Auto) 0.5 Neut # (Auto) 9.4 H Lymph # (Auto) 2.6 [place] # (Auto) 0.8 Eos # (Auto) 0.3 Baso # (Auto) 0.1 PT INR APTT Sodium Potassium Chloride Carbon Dioxide Anion Gap BUN Creatinine Est GFR ( Amer) Est GFR (Non-Af Amer) POC Glucose (mg/dL) 289 H Random Glucose Hemoglobin A1c Calcium Total Bilirubin AST ALT Alkaline Phosphatase Total Creatine Kinase 98 CK-MB (Mass) 1.37 Troponin I 0.0230 Total Protein Albumin Globulin Albumin/Globulin Ratio Triglycerides Cholesterol LDL Cholesterol Direct HDL Cholesterol Serum Ketones 08/06/17 08/06/17 08/06/17 09:33 09:33 12:29 WBC RBC Hgb Hct MCV MCH MCHC RDW Plt Count MPV Neut % (Auto) Lymph % (Auto) [place] % (Auto) Eos % (Auto) Baso % (Auto) Neut # (Auto) Lymph # (Auto) [place] # (Auto) Eos # (Auto) Baso # (Auto) PT INR APTT Sodium 127 L Potassium 4.0 Chloride 99 Carbon Dioxide 28 Anion Gap 5 L BUN 15 Creatinine 0.8 Est GFR ( Amer) > 60 Est GFR (Non-Af Amer) > 60 POC Glucose (mg/dL) 281 H Random Glucose 229 H Hemoglobin A1c 12.1 H Calcium 8.5 L Total Bilirubin 0.3 AST 14 ALT 21 Alkaline Phosphatase 112 Total Creatine Kinase CK-MB (Mass) Troponin I Total Protein 5.9 L Albumin 2.8 L Globulin 3.1 Albumin/Globulin Ratio 0.9 L Triglycerides 196 H Cholesterol 270 H LDL Cholesterol Direct 153 H HDL Cholesterol 58 Serum Ketones 08/06/17 08/06/17 15:52 19:04 WBC RBC Hgb Hct MCV MCH MCHC RDW Plt Count MPV Neut % (Auto) Lymph % (Auto) [place] % (Auto) Eos % (Auto) Baso % (Auto) Neut # (Auto) Lymph # (Auto) [place] # (Auto) Eos # (Auto) Baso # (Auto) PT INR APTT Sodium Potassium Chloride Carbon Dioxide Anion Gap BUN Creatinine Est GFR ( Amer) Est GFR (Non-Af Amer) POC Glucose (mg/dL) 242 H Random Glucose Hemoglobin A1c Calcium Total Bilirubin AST ALT Alkaline Phosphatase Total Creatine Kinase 117 CK-MB (Mass) 1.37 Troponin I 0.0220 Total Protein Albumin Globulin Albumin/Globulin Ratio Triglycerides Cholesterol LDL Cholesterol Direct HDL Cholesterol Serum Ketones
[2017-08-06] MEDS: (Lantus) Insulin Glargine, Recombinant SC SCH ×2 (21:53→21:55)
--- NOTE | 2017-08-06 22:22 | CARD ---
APPROVED REPORT EKG Measurement Heart [id number] <Conclusion> Normal sinus rhythm Nonspecific T wave abnormality Abnormal ECG
[2017-08-07] MEDS ORDERED: Bisacodyl 5mg EC Tab PO ONE (00:11)
[2017-08-07] MEDS: ceFAZolin 1 GM in Sodium Chloride 0.9% 100 ML IVPB SCH ×3 (00:34→15:10)
--- NOTE | 2017-08-07 07:19 | HP ---
HISTORY OF PRESENT ILLNESS: Ms. Rosa is a 42-year-old female, admitted to the hospital with chief complaint of chest pain, retrosternal; upper abdominal pain; leg pain, the patient states she is able to stand. PAST MEDICAL HISTORY: The patient has past medical history of diabetes and hypertension. The patient is extremely noncompliant to medications. PHYSICAL EXAMINATION: GENERAL: The patient is awake, alert, oriented. VITAL SIGNS: Temperature 98, pulse is 90. HEENT: Within normal limits. NECK: Supple. CHEST: Symmetrical. HEART: Regular. ABDOMEN: Soft. EXTREMITIES: No edema. IMPRESSION: The patient suffers from acute coronary syndrome, abdominal pain, ____ chest to be determined, rule out deep venous thrombosis. PLAN: The patient to get bed rest, supportive care, cardiac enzymes, venous Doppler. Antonio Mejia MD
[2017-08-07 08:01] LABS: ALB/GLOB RATIO 0.9 (1.0-2.1); ALBUMIN 3.2 g/dL (3.5-5.0); CALCIUM 8.9 mg/dl (8.6-10.4)
[2017-08-07 08:14] LABS: BASO # 0.1 K/uL (0.0-0.2); BASO % 0.6 % (0.0-2.0); EOS # 0.2 K/uL (0.0-0.7); HEMOGLOBIN 11.9 g/dL (11.0-16.0); LYMPH % 24.2 % (20.0-40.0); MEAN CELL VOLUME 94.8 fL (81.0-99.0); MEAN CORPUSCULAR HEMOGLOBIN 33.7 pg (27.0-31.0); MEAN CORPUSCULAR HGB CONC 35.6 g/dL (33.0-37.0); MEAN PLATELET VOLUME 9.3 fL (7.2-11.7); MONO # 0.8 K/uL (0.0-0.8); MONO % 6.3 % (0.0-10.0); NEUT # 8.2 K/uL (1.8-7.0); NEUT % 66.9 % (50.0-75.0); RBC 3.53 Mil/uL (3.80-5.20); RED CELL DISTRIBUTION WIDTH 12.6 % (11.5-14.5); WHITE BLOOD COUNT 12.3 K/uL (4.8-10.8)
[2017-08-07] MEDS: Piperacill/Tazo 3.375gm in Dex 3.375 GM/50 ML BAG IVPB SCH ×2 (08:37→20:57)
[2017-08-07] MEDS: (Novolog) Insulin Aspart, Recombinant 100 u/ml 10 ml vial SC SCH ×3 (08:45→21:05)
--- NOTE | 2017-08-07 09:24 | CP.PCM.PN ---
Subjective - Date & Time of Evaluation Date of Evaluation: 08/07/17 Time of Evaluation: 09:22 - Subjective Subjective: PGY2 progress note for Dr. Mejia Pt seen and examined at bedside. No acute events overnight. Pt c/o slight chest pain this morning located substernally. Denies having any SOB, abd pain, N/V/D/C, F/C. Pt states she had 2 well formed BMs overnight which helped improved the LUQ abd pain. Pt states that vaginal abscess is draining minimal purluent fluid. Objective - Vital Signs/Intake and Output Vital Signs (last 24 hours): Temp Pulse Resp BP Pulse Ox 98.2 F 84 20 111/75 100 08/07/17 08:15 08/07/17 08:15 08/07/17 08:15 08/07/17 08:15 08/07/17 08:15 Intake and Output: 08/07/17 08/07/17 06:59 18:59 Intake Total 100 Balance 100 - Medications Medications: Current Medications Amlodipine Besylate (Norvasc) 10 mg PO DAILY [facility] Last Admin: 08/06/17 14:13 Dose: 10 mg Aspirin (Aspirin Chewable) 81 mg PO DAILY [facility] Last Admin: 08/06/17 09:23 Dose: 81 mg Clopidogrel Bisulfate (Plavix) 75 mg PO DAILY [facility] Last Admin: 08/06/17 09:23 Dose: 75 mg Enoxaparin Sodium (Lovenox) 40 mg SC DAILY [facility] Famotidine (Pepcid) 20 mg PO BID [facility] Last Admin: 08/06/17 17:49 Dose: 20 mg Gabapentin (Neurontin) 600 mg PO TID [facility] Last Admin: 08/06/17 17:49 Dose: 600 mg Hydromorphone HCl (Dilaudid) 1 mg IVP Q6H PRN PRN Reason: Pain, severe (8-10) Last Admin: 08/07/17 07:03 Dose: 1 mg Cefazolin Sodium 1 gm/ Sodium (Chloride) 100 mls @ 100 mls/hr IVPB Q8H [facility] Last Admin: 08/07/17 08:36 Dose: Not Given Piperacillin Sod/Tazobactam Sod (Zosyn 3.375 Gm Iv Premix) 3.375 gm in 50 mls @ 100 mls/hr IVPB Q8H [facility] Last Admin: 08/07/17 08:37 Dose: Not Given Sodium Chloride (Sodium Chloride 0.9%) 1,000 mls @ 100 mls/hr IV .Q10H [facility] Insulin Aspart (Novolog Mix 70/30 (70/30 Units/Ml)) 25 units SC BID [facility] Last Admin: 08/06/17 17:50 Dose: 25 units Insulin Aspart (Novolog) 0 unit SC ACHS [facility] PRN Reason: Protocol Last Admin: 08/07/17 08:45 Dose: 6 unit Insulin Glargine (Lantus) 50 unit SC [facility] Last Admin: 08/06/17 21:55 Dose: Not Given Levetiracetam (Keppra) 750 mg PO BID [facility] Last Admin: 08/06/17 17:49 Dose: 750 mg Lisinopril (Zestril) 10 mg PO DAILY [facility] Nicotine (Nicoderm Cq) 1 patch TD DAILY [facility] Phenobarbital (Phenobarbital Tab) 64.8 mg PO TID [facility] Last Admin: 08/06/17 18:09 Dose: Not Given Rosuvastatin Calcium (Crestor) 5 mg PO [facility] Last Admin: 08/06/17 21:54 Dose: 5 mg Tramadol HCl (Ultram) 25 mg PO TID PRN PRN Reason: Pain, moderate (4-7) Last Admin: 08/06/17 14:09 Dose: 25 mg - Labs Labs: 08/07/17 07:36 08/07/17 07:36 PT 10.3 SECONDS (9.7-12.2) 08/05/17 20:14 INR 0.9 08/05/17 20:14 APTT 28 SECONDS (21-34) 08/05/17 20:14 - Constitutional Appears: Non-toxic, No Acute Distress - Head Exam Head Exam: ATRAUMATIC - ENT Exam ENT Exam: Mucous Membranes Moist - Respiratory Exam Respiratory Exam: Clear to Ausculation Bilateral. absent: Rales, Rhonchi, Wheezes - Cardiovascular Exam Cardiovascular Exam: REGULAR RHYTHM, +S1, +S2. absent: Gallop, Rubs, Murmur - GI/Abdominal Exam GI & Abdominal Exam: Soft, Normal Bowel Sounds. absent: Distended, Firm, Guarding, Rigid, Tenderness, Organomegaly - Extremities Exam Extremities Exam: absent: Pedal Edema, Tenderness - Neurological Exam Neurological Exam: Alert, Awake, Oriented x3 - Psychiatric Exam Psychiatric exam: Normal Affect, Normal Mood - Skin Skin Exam: Dry, Intact, Normal Color, Warm Assessment and Plan - Assessment and Plan (Free Text) Assessment: 42 year old female with PMHx of IDDM and seizure disorder is admitted for chest pain, abdominal pain. Chest pain R/O ACS - troponins x 3 negative. EKG showed NSR - Echo done yesterday showed normal LV function, mild TR, mild pumonary HTN and questionable pericardial effusion - Cardio, Dr. Rosa is consulted - Continue Aspirin and plavix qd - Continue lisinopril and crestor qd Abd pain - improved - CT scan of abd/pelvis negative - Will continue to monitor - Pain management with dilaudid 1 tab q4 IDDM - Accu check ACHS - Continue home insulin regimen: glargine 50 units SC HS, Novolog 70/30 25 units BID - HgbA1c is 12.1 HLD - Lipid panel checked showed TG 196, Chol 270, LDL 153 HDL 58 - Pt started on Crestor Seizure disorder - Continue home medication: Keppra and phenobarbital - Will check pheobarbital level. Per pts pharmacy, pt has not filled phenobarbital since Novemeber Vaginal abscess - General surgery, Dr. Graves is consulted - [employer] Supervisor consulted. Recommend Sits baths and continuing Abx per ID recs. Has signed off - ID is consulted. Recommends switching pt to Zosyn - Blood cultures, wound cultures ordered CRISTI - Cr this am is 1.3 (yesterday 0.8) - Pt started on NS 100 cc - Will continue to monitor and avoid nephrotoxic drugs Prophylaxis - Protonix - lovenox - PICC line ordered to be placed due to poor vascular access Case discussed with attending. All management and orders per Dr. Mejia
[2017-08-07] MEDS: (Novolog Mix 70/30) Insulin Aspart/Insulin Aspar 100 units/ml SC SCH ×2 (09:41→18:30)
[2017-08-07] MEDS: Enoxaparin 40 mg Syringe SC SCH (09:41)
--- NOTE | 2017-08-07 11:08 | VASCLAB ---
PROCEDURE: Lower Extremity Venous Duplex Exam. HISTORY: Swelling PRIORS: None. TECHNIQUE: Bilateral common femoral, femoral, popliteal and posterior tibial, peroneal and great saphenous veins were evaluated. Flow was assessed with color Doppler, compressibility, assessment of phasic flow and augmentation response. Report prepared by RIOS Lugo FINDINGS: RIGHT: 1. Common Femoral Vein: 1.1. Compressibility - Fully compressible: Thrombus - None : Flow - Phasic: Augmentation -Normal: Reflux - None. 2. Femoral Vein: 2.1. Compressibility - Fully compressible: Thrombus - None : Flow - Phasic: Augmentation -Normal: Reflux - None. 3. Popliteal Vein: 3.1. Compressibility - Fully compressible: Thrombus - None : Flow - Phasic: Augmentation -Normal: Reflux - None. 4. Posterior Tibial Vein: 4.1. Compressibility - Fully compressible: Thrombus - None: Flow - Phasic: Augmentation -Normal: Reflux - None. 5. Peroneal Vein: 5.1. Compressibility - Fully compressible: Thrombus - None: Flow - Phasic: Augmentation -Normal: Reflux - None. 6. Great Saphenous Vein: 6.1. Compressibility - Fully compressible: Thrombus - None: Flow - Phasic: Augmentation - Normal: Reflux - None. LEFT: 1. Common Femoral Vein: 1.1. Compressibility - Fully compressible: Thrombus - None: Flow - Phasic: Augmentation -Normal: Reflux - None. 2. Femoral Vein: 2.1. Compressibility - Fully compressible: Thrombus - None: Flow - Phasic: Augmentation -Normal: Reflux - None. 3. Popliteal Vein: 3.1. Compressibility - Fully compressible: Thrombus - None : Flow - Phasic: Augmentation -Normal: Reflux - None. 4. Posterior Tibial Vein: 4.1. Compressibility - Fully compressible: Thrombus - None: Flow - Phasic: Augmentation -Normal: Reflux - None. 5. Peroneal Vein: 5.1. Compressibility - Fully compressible: Thrombus - None: Flow - Phasic: Augmentation -Normal: Reflux - None. 6. Great Saphenous Vein: 6.1. Compressibility - Fully compressible: Thrombus - None: Flow - Phasic: Augmentation - Normal: Reflux - None. OTHER FINDINGS: Right: None significant. Left: None significant. IMPRESSION: Right: No evidence of deep or superficial vein thrombosis of the right lower extremity. Normal valve function noted of the right side. Left: No evidence of deep or superficial vein thrombosis of the left lower extremity. Normal valve function noted of the left side.
--- NOTE | 2017-08-07 12:22 | RAD ---
HISTORY: verify right PICC COMPARISON: No prior. FINDINGS: LUNGS: No active pulmonary disease. PLEURA: No significant pleural effusion identified, no pneumothorax apparent. CARDIOVASCULAR: Right PICC catheter terminates in the superior vena cava above the level of the cavoatrial junction. OSSEOUS STRUCTURES: No significant abnormalities. VISUALIZED UPPER ABDOMEN: Normal. OTHER FINDINGS: None. IMPRESSION: New right PICC catheter terminates in the region of the superior vena cava. Otherwise unremarkable.
[2017-08-07] MEDS: Sodium Chloride 0.9% 1,000 ML IV SCH ×2 (13:15→13:33)
[2017-08-07] MEDS ORDERED: Dextrose 50% SYRINGE Inj (50 ml) IV STA (16:16)
[2017-08-07] MEDS ORDERED: Dextrose 50% VIAL Inj (50 ml) IV ONE (16:16)
[2017-08-07] MEDS ORDERED: Propofol 10 mg/ml Inj (20 ML) ONE (17:23)
--- NOTE | 2017-08-07 18:46 | CP.PCM.CON ---
History of Present Illness - History of Present Illness History of Present Illness: 42 y/o female who presents to the ED with complaints of diffuse left sided abdominal pain for the last 1-2 months and chest pain since 2 hours ago. Patient denies any nausea, vomiting, or diarrhea. Patient describes abdominal pain as crampy and stabbing; admits chest pain is a dull, burning sensation. Patient has a Hx of DM that is not well controlled. Patient has no other physical complaints at this time. admitted with vaginal abscess and going for I and D - Medical History PMH: Anxiety, Asthma, Diabetes, Seizures (epileptic) Denies: Chronic Kidney Disease Surgical History: Appendectomy - [facility] Procedures CENTRAL VENOUS CATHETER PLACEMENT WITH GUIDANCE (07/08/13) EXCIS DEBRIDE OF WOUND, INFECT, OR BURN (09/29/13) OTHER APPENDECTOMY (07/08/13) PERITONEAL LAVAGE (07/08/13) Review of Systems - Review of Systems All systems: reviewed and no additional remarkable complaints except - Constitutional Constitutional: As Per HPI - EENT Eyes: absent: As Per HPI, Blind Spots, Blurred Vision, Change in Vision, Decreased Night Vision, Diplopia, Discharge, Dry Eye, Exophthalmos, Floaters, Irritation, Itchy Eyes, Loss of Peripheral Vision, Pain, Photophobia, Requires Corrective Lenses, Sees Flashes, Spots in Vision, Tunnel Vision, Other Visual Disturbances, Loss of Vision, Other Ears: absent: As Per HPI, Decreased Hearing, Ear Discharge, Ear Pain, Tinnitus, Abnormal Hearing, Disequilibrium, Dizziness, Other Nose/Mouth/Throat: absent: As Per HPI, Epistaxis, Nasal Congestion, Nasal Discharge, Nasal Obstruction, Nasal Trauma, Nose Pain, Post Nasal Drip, Sinus Pain, Sinus Pressure, Bleeding Gums, Change in Voice, Dental Pain, Dry Mouth, Dysphagia, Halitosis, Hoarsness, Lip Swelling, Mouth Lesions, Mouth Pain, Odynophagia, Sore Throat, Throat Swelling, Tongue Swelling, Facial Pain, Neck Pain, Neck Mass, Other - Breasts Breasts: absent: As Per HPI, Change in Shape, Mass, Pain, Nipple Discharge, Nipple Inversion, Skin Changes, Swelling, Other - Cardiovascular Cardiovascular: absent: As Per HPI, Acrocyanosis, Chest Pain, Chest Pain at Rest , Chest Pain with Activity, Claudication, Diaphoresis, Dyspnea, Dyspnea on Exertion, Edema, Irregular Heart Rhythm, Pain Radiating to Arm/Neck/Jaw, Leg Edema, Leg Ulcers, Lightheadedness, Orthopnea, Palpitations, Paroxysmal Nocturnal Dyspnea, Pedal Edema, Radiating Pain, Rapid Heart Rate, Slow Heart Rate, Syncope, Other - Respiratory Respiratory: absent: As Per HPI, Cough, Dyspnea, Hemoptysis, Dyspnea on Exertion , Wheezing, Snoring, Stridor, Pain on Inspiration, Chest Congestion, Excessive Mucous Production, Change in Mucous Color, Pain with Coughing, Other - Gastrointestinal Gastrointestinal: absent: As Per HPI, Abdominal Pain, Belching, Bloating, Change in Bowel Habits, Change in Stool Character, Coffee Ground Emesis, Constipation, Cramping, Diarrhea, Dyspepsia, Dysphagia, Early Satiety, Excessive Flatus, Fecal Incontinence, Heartburn, Hematemesis, Hematochezia, Loose Stools, Melena, Nausea, Odynophagia, Temesmus, Vomiting, Other - Genitourinary Genitourinary: As Per HPI - Reproductive: Female Reproductive:Female: As Per HPI - Menstruation Menstruation: As Per HPI - Musculoskeletal Musculoskeletal: absent: As Per HPI, Abnormal Gait, Arthralgias, Atrophy, Back Pain, Deformity, Joint Swelling, Limited Range of Motion, Loss of Height, Muscle Cramps, Muscle Weakness, Myalgias, Neck Pain, Numbness, Radiating Pain into Limb, Stiffness, Tingling, Other - Integumentary Integumentary: As Per HPI - Neurological Neurological: absent: As Per HPI, Abnormal Gait, Abnormal Hearing, Abnormal Movements, Abnormal Speech, Behavioral Changes, Burning Sensations, Confusion, Convulsions, Disequilibrium, Dizziness, Numbness, Focal Weakness, Frequent Falls , Headaches, Lack of Coordination, Loss of Vision, Memory Loss, Paresthesias, Radicular Pain, Restless Legs, Sensory Deficit, Syncope, Tingling, Tremor, Vertigo, Weakness, Other Visual Disturbances, Other - Psychiatric Psychiatric: absent: As Per HPI, Abnormal Sleep Pattern, Anhedonia, Anxiety, Auditory Hallucinations, Behavioral Changes, Change in Appetite, Change in Libido, Confusion, Depression, Difficulty Concentrating, Hallucinations, Homicidal Ideation, Hopelessness, Irritability, Memory Loss, Mood Swings, Panic Attacks, Paranoia, Suicidal Ideation, Visual Hallucinations, Tactile Hallucinations, Other - Endocrine Endocrine: absent: As Per HPI, Change in Body Appearance, Change in Libido, Cold Intolorance, Deepening of Voice, Excessive Sweating, Fatigue, Flushing, Heat Intolorance, Increase in Ring/Shoe/Hat Size, Palpitations, Polydipsia, Polyphagia, Polyuria, Other - Hematologic/Lymphatic Hematologic: absent: As Per HPI, Easy Bleeding, Easy Bruising, Lymphadenopathy, Other Past Patient History - Past Medical History & Family History Past Medical History?: Yes - Past Social History Smoking Status: Current Some Days Smoker - CARDIAC Other/Comment: QUESTIONABLE DVT LEG - PULMONARY Hx Asthma: Yes (asthma) - NEUROLOGICAL Hx Seizures: Yes (epileptic) - HEENT Hx HEENT Problems: No - RENAL Hx Chronic Kidney Disease: No - ENDOCRINE/METABOLIC Hx Endocrine Disorders: Yes Hx Diabetes Mellitus Type 1: Yes - HEMATOLOGICAL/ONCOLOGICAL Hx Blood Disorders: No - INTEGUMENTARY Hx Dermatological Problems: Yes Other/Comment: DRAINING ABSCESS, ABDOMEN - MUSCULOSKELETAL/RHEUMATOLOGICAL Hx Falls: Yes (epilepsy) - GASTROINTESTINAL Hx Gastrointestinal Disorders: No - GENITOURINARY/GYNECOLOGICAL Hx Genitourinary Disorders: No - PSYCHIATRIC Hx Anxiety: Yes Hx Substance Use: No - SURGICAL HISTORY Hx Appendectomy: Yes - ANESTHESIA Hx Anesthesia: Yes Hx Anesthesia Reactions: No Hx Malignant Hyperthermia: No Has any member of the family had a problem w/ anesthesia?: No Meds Allergies/Adverse Reactions: Allergies Allergy/AdvReac Type Severity Reaction Status Date / Time morphine Allergy Verified 08/05/17 20:23 - Medications Medications: Current Medications Amlodipine Besylate (Norvasc) 10 mg PO DAILY [facility] Last Admin: 08/07/17 09:39 Dose: 10 mg Aspirin (Aspirin Chewable) 81 mg PO DAILY [facility] Last Admin: 08/07/17 09:39 Dose: 81 mg Clopidogrel Bisulfate (Plavix) 75 mg PO DAILY [facility] Last Admin: 08/07/17 09:38 Dose: 75 mg Enoxaparin Sodium (Lovenox) 40 mg SC DAILY [facility] Last Admin: 08/07/17 09:41 Dose: 40 mg Famotidine (Pepcid) 20 mg PO BID [facility] Last Admin: 08/07/17 09:39 Dose: 20 mg Gabapentin (Neurontin) 600 mg PO TID [facility] Last Admin: 08/07/17 13:13 Dose: 600 mg Hydromorphone HCl (Dilaudid) 1 mg IVP Q6H PRN PRN Reason: Pain, severe (8-10) Last Admin: 08/07/17 13:32 Dose: 1 mg Hydromorphone HCl (Dilaudid) 0.5 mg IVP Q10M PRN PRN Reason: Pain, moderate (4-7) Stop: 08/07/17 20:09 Cefazolin Sodium 1 gm/ Sodium (Chloride) 100 mls @ 100 mls/hr IVPB Q8H [facility] Last Admin: 08/07/17 15:10 Dose: 100 mls/hr Piperacillin Sod/Tazobactam Sod (Zosyn 3.375 Gm Iv Premix) 3.375 gm in 50 mls @ 100 mls/hr IVPB Q8H [facility] Last Admin: 08/07/17 08:37 Dose: Not Given Sodium Chloride (Sodium Chloride 0.9%) 1,000 mls @ 100 mls/hr IV .Q10H [facility] Last Admin: 08/07/17 13:33 Dose: 100 mls/hr Dextrose/Sodium Chloride (Dextrose 5%/0.45% Ns 1000 Ml) 1,000 mls @ 80 mls/hr IV .[id number] [facility] Insulin Aspart (Novolog Mix 70/30 (70/30 Units/Ml)) 25 units SC BID [facility] Last Admin: 08/07/17 09:41 Dose: 25 units Insulin Aspart (Novolog) 0 unit SC [facility] PRN Reason: Protocol Last Admin: 08/07/17 12:53 Dose: Not Given Insulin Glargine (Lantus) 50 unit SC [facility] Last Admin: 08/06/17 21:55 Dose: Not Given Levetiracetam (Keppra) 750 mg PO BID [facility] Last Admin: 08/07/17 09:39 Dose: 750 mg Lisinopril (Zestril) 10 mg PO DAILY [facility] Last Admin: 08/07/17 09:40 Dose: 10 mg Nicotine (Nicoderm Cq) 1 patch TD DAILY [facility] Last Admin: 08/07/17 10:10 Dose: 1 patch Phenobarbital (Phenobarbital Tab) 64.8 mg PO TID [facility] Last Admin: 08/07/17 13:12 Dose: 64.8 mg Rosuvastatin Calcium (Crestor) 5 mg PO [facility] Last Admin: 08/06/17 21:54 Dose: 5 mg Tramadol HCl (Ultram) 25 mg PO TID PRN PRN Reason: Pain, moderate (4-7) Last Admin: 08/06/17 14:09 Dose: 25 mg Physical Exam - Constitutional Appears: Non-toxic, Chronically Ill - Head Exam Head Exam: NORMOCEPHALIC - Eye Exam Eye Exam: PERRL - ENT Exam ENT Exam: Mucous Membranes Dry, Normal External Ear Exam - Neck Exam Neck exam: Negative for: Lymphadenopathy - Respiratory Exam Respiratory Exam: Decreased Breath Sounds - Cardiovascular Exam Cardiovascular Exam: REGULAR RHYTHM - GI/Abdominal Exam GI & Abdominal Exam: Diminished Bowel Sounds, Soft. absent: Tenderness - Rectal Exam Rectal Exam: Deferred - Exam Exam: absent: NORMAL INSPECTION External exam: Erythema, Swelling - Extremities Exam Extremities exam: Positive for: pedal pulses present. Negative for: calf tenderness, pedal edema, tenderness - Back Exam Back exam: absent: CVA tenderness (L), CVA tenderness (R) - Neurological Exam Neurological exam: Alert, CN II-XII Intact, Oriented x3, Reflexes Normal - Psychiatric Exam Psychiatric exam: Depressed - Skin Skin Exam: Dry Results - Vital Signs Recent Vital Signs: Last Vital Signs Temp 97.2 F L 08/07/17 18:08 Pulse 75 08/07/17 18:08 Resp 16 08/07/17 18:08 BP 82/47 L 08/07/17 18:08 Pulse Ox 100 08/07/17 18:08 - Labs Result Diagrams: 08/07/17 07:36 08/07/17 07:36 Labs: Laboratory Results - last 24 hr 08/06/17 08/06/17 08/07/17 19:04 21:26 06:23 WBC RBC Hgb Hct MCV MCH MCHC RDW Plt Count MPV Neut % (Auto) Lymph % (Auto) Griggs % (Auto) Eos % (Auto) Baso % (Auto) Neut # (Auto) Lymph # (Auto) [place]gs # (Auto) Eos # (Auto) Baso # (Auto) Sodium Potassium Chloride Carbon Dioxide Anion Gap BUN Creatinine Est GFR ( Amer) Est GFR (Non-Af Amer) POC Glucose (mg/dL) 117 H 295 H Random Glucose Calcium Total Bilirubin AST ALT Alkaline Phosphatase Total Creatine Kinase 117 CK-MB (Mass) 1.37 Troponin I 0.0220 Total Protein Albumin Globulin Albumin/Globulin Ratio 08/07/17 08/07/17 08/07/17 07:36 07:36 11:33 WBC 12.3 H RBC 3.53 L Hgb 11.9 Hct 33.4 L MCV 94.8 MCH 33.7 H MCHC 35.6 RDW 12.6 Plt Count 240 MPV 9.3 Neut % (Auto) 66.9 Lymph % (Auto) 24.2 Griggs % (Auto) 6.3 Eos % (Auto) 2.0 Baso % (Auto) 0.6 Neut # (Auto) 8.2 H Lymph # (Auto) 3.0 Griggs # (Auto) 0.8 Eos # (Auto) 0.2 Baso # (Auto) 0.1 Sodium 129 L Potassium 4.1 Chloride 96 L Carbon Dioxide 26 Anion Gap 11 BUN 22 H Creatinine 1.3 H Est GFR ( Amer) 55 Est GFR (Non-Af Amer) 45 POC Glucose (mg/dL) 191 H Random Glucose 283 H Calcium 8.9 Total Bilirubin 0.4 AST 17 ALT 23 Alkaline Phosphatase 114 Total Creatine Kinase CK-MB (Mass) Troponin I Total Protein 6.7 Albumin 3.2 L Globulin 3.5 Albumin/Globulin Ratio 0.9 L 08/07/17 08/07/17 16:13 16:36 WBC RBC Hgb Hct MCV MCH MCHC RDW Plt Count MPV Neut % (Auto) Lymph % (Auto) Griggs % (Auto) Eos % (Auto) Baso % (Auto) Neut # (Auto) Lymph # (Auto) Griggs # (Auto) Eos # (Auto) Baso # (Auto) Sodium Potassium Chloride Carbon Dioxide Anion Gap BUN Creatinine Est GFR ( Amer) Est GFR (Non-Af Amer) POC Glucose (mg/dL) 53 L 155 H Random Glucose Calcium Total Bilirubin AST ALT Alkaline Phosphatase Total Creatine Kinase CK-MB (Mass) Troponin I Total Protein Albumin Globulin Albumin/Globulin Ratio Assessment & Plan (1) Abdominal pain Status: Acute (2) Chest pain Status: Acute (3) Diabetes mellitus Status: Acute (4) Hypertension Status: Acute (5) Infected wound Status: Acute - Assessment and Plan (Free Text) Assessment: start zosyn await cultures
[2017-08-07] MEDS: Dextrose 5%/0.45% NS 1,000 ML IV SCH (21:00)
[2017-08-07] MEDS: (Lantus) Insulin Glargine, Recombinant SC SCH (22:29)
--- NOTE | 2017-08-07 23:05 | CT ---
EXAM: CT Head Without Intravenous Contrast CLINICAL HISTORY: 42 years old, female; Pain; Headache; Additional info: C/O heaviness and weakness on left side TECHNIQUE: Axial computed tomography images of the head/brain without intravenous contrast. All CT scans at this facility use one or more dose reduction techniques, viz.: automated exposure control; ma/kV adjustment per patient size (including targeted exams where dose is matched to indication; i.e. head); or iterative reconstruction technique. COMPARISON: No relevant prior studies available. FINDINGS: Brain: Minimal atrophy. No intracranial hemorrhage. No mass. Few scattered foci of decreased attenuation within periventricular/subcortical white matter. No definite edema. Ventricles: No hydrocephalus. Bones/joints: No acute fracture. Soft tissues: Unremarkable. Sinuses: Scattered mild mucosal thickening of ethmoid sinuses. Mastoid air cells: No mastoid effusion. Orbits: Unremarkable as visualized. IMPRESSION: 1. Nonspecific white matter changes. Acute infarction may be CT occult within first 24 hours. If a focal deficit persists, consider followup CT or MRI for further evaluation. 2. Incidental/non-acute findings are described above.
[2017-08-08] MEDS: ceFAZolin 1 GM in Sodium Chloride 0.9% 100 ML IVPB SCH ×4 (00:15→23:35)
[2017-08-08] MEDS ORDERED: Morphine 4 MG/ML VIAL IV ONE (00:37)
[2017-08-08] MEDS: Tramadol 25 mg PO PRN ×2 (01:01→18:07)
[2017-08-08] MEDS: Piperacill/Tazo 3.375gm in Dex 3.375 GM/50 ML BAG IVPB SCH ×2 (01:30→08:55)
--- NOTE | 2017-08-08 04:31 | OP ---
PROCEDURE DATE: 08/07/2017 PREOPERATIVE DIAGNOSIS: Labia and pelvic abscess. POSTOPERATIVE DIAGNOSIS: Labia and pelvic abscess. PROCEDURE PERFORMED: Incision and drainage of the labia and pelvic abscess. SURGEON: Roni Graves MD TYPE OF ANESTHESIA: General. BLOOD LOSS: 30 mL. POSTOPERATIVE CONDITION: Stable. INDICATIONS FOR SURGERY: This is a 42-year-old female with an extensive labial and pelvic abscess, diabetic, admitted with sepsis, taken to the OR for I and D. GROSS FINDINGS: There was a pelvic abscess which extended from the labia into the ischiorectal fossa. It was a large abscess containing a pus, 20 to 30 mL of pus, and extended into the pelvis. There were no other abnormal findings. DESCRIPTION OF PROCEDURE: The patient was taken to the operating room. General anesthesia was administered. She was placed in lithotomy position. The labial and rectal area were prepped and draped. An incision was made over the abscess cavity and was traced inferiorly rectal area. The abscess was opened widely and drained widely. Bleeding was controlled using a Bovie, a larger pelvic vessel was repaired. The wound was irrigated with copious amounts of saline solution. Partial tissue flap closure was performed. The central portion of the wound was packed open with saline gauze. The patient tolerated the procedure well and returned to the recovery room in stable condition. Roni Graevs MD
[2017-08-08 05:30] LABS: BASO % 0.3 % (0.0-2.0); EOS # 0.3 K/uL (0.0-0.7); EOS % 2.3 % (0.0-4.0); HEMOGLOBIN 10.3 g/dL (11.0-16.0); LYMPH # 2.2 K/uL (1.0-4.3); LYMPH % 17.9 % (20.0-40.0); MEAN CELL VOLUME 95.5 fL (81.0-99.0); MEAN CORPUSCULAR HEMOGLOBIN 33.4 pg (27.0-31.0); MEAN CORPUSCULAR HGB CONC 34.9 g/dL (33.0-37.0); MEAN PLATELET VOLUME 8.7 fL (7.2-11.7); MONO # 0.9 K/uL (0.0-0.8); NEUT # 8.9 K/uL (1.8-7.0); NEUT % 72.5 % (50.0-75.0); NRBC % 0.1 % (0.0-2.0); RBC 3.09 Mil/uL (3.80-5.20); RED CELL DISTRIBUTION WIDTH 12.5 % (11.5-14.5); WHITE BLOOD COUNT 12.3 K/uL (4.8-10.8)
[2017-08-08 06:06] LABS: ALB/GLOB RATIO 0.9 (1.0-2.1); ALBUMIN 2.5 g/dL (3.5-5.0); ALT/SGPT 17 U/L (9-52); AST/SGOT 12 U/L (14-36); BLOOD UREA NITROGEN 19 mg/dL (7-17); CALCIUM 8.1 mg/dl (8.6-10.4); GFR AFRICAN-AMERICAN > 60; GFR NON-AFRICAN AMERICAN 55
[2017-08-08] MEDS: Dextrose 5%/0.45% NS 1,000 ML IV SCH ×2 (08:19→21:24)
[2017-08-08] MEDS: (Novolog) Insulin Aspart, Recombinant 100 u/ml 10 ml vial SC SCH ×4 (08:20→21:38)
[2017-08-08] MEDS: (Novolog Mix 70/30) Insulin Aspart/Insulin Aspar 100 units/ml SC SCH ×2 (10:12→17:55)
[2017-08-08] MEDS: Enoxaparin 40 mg Syringe SC SCH (10:12)
[2017-08-08] MEDS ORDERED: Propofol 10 mg/ml Inj (20 ML) ONE (12:38)
[2017-08-08] MEDS ORDERED: Midazolam 2 MG/2 ML VIAL ONE (12:38)
[2017-08-08] MEDS: (Lantus) Insulin Glargine, Recombinant SC SCH (21:22)
--- NOTE | 2017-08-08 23:36 | OP ---
PROCEDURE DATE: 08/08/2017 PREOPERATIVE DIAGNOSIS: Left pelvic abscess. POSTOPERATIVE DIAGNOSIS: Left pelvic abscess. PROCEDURE PERFORMED: Re-incision, drainage of left pelvic abscess with debridement and partial closure. SURGEON: Roni Graves MD ANESTHESIA: General. ESTIMATED BLOOD LOSS: 30 mL. POSTOPERATIVE CONDITION: Stable INDICATIONS FOR SURGERY: This is a 42-year-old female status post drainage of a deep labial and pelvic abscess yesterday. She is taken back to the OR today for change of packing under anesthesia. DESCRIPTION OF PROCEDURE: The patient was taken to the operating room, general anesthesia was administered. The packing was removed. The patient was placed lithotomy position and the pelvic and labial regions were prepped and draped. The wounds were again aggressively debrided and remaining pelvic collections were drained. Bleeding was controlled using the Bovie. Larger blood vessels were repaired. Pulse irrigation was employed and the wounds were washed out and cleansed. A partial flap closure was performed and the central portion was packed open with saline gauze. The patient tolerated the procedure well. Returned to recovery in stable condition. Roni Graves MD
[2017-08-09] MEDS: Piperacillin/Tazobact 3.375 GM in Sodium Chloride 0.9% 100 ML IVPB SCH ×3 (01:30→17:30)
[2017-08-09] MEDS: ceFAZolin 1 GM in Sodium Chloride 0.9% 100 ML IVPB SCH ×2 (07:30→15:08)
[2017-08-09] MEDS: (Novolog) Insulin Aspart, Recombinant 100 u/ml 10 ml vial SC SCH ×5 (07:48→22:19)
[2017-08-09] MEDS: Dextrose 5%/0.45% NS 1,000 ML IV SCH ×2 (08:14→21:00)
[2017-08-09] MEDS: (Novolog Mix 70/30) Insulin Aspart/Insulin Aspar 100 units/ml SC SCH ×2 (09:58→18:10)
[2017-08-09] MEDS: Enoxaparin 40 mg Syringe SC SCH (10:17)
[2017-08-09] MEDS: Saccharomyces Boulardi 250 mg Cap PO SCH (10:23)
--- NOTE | 2017-08-09 16:41 | CP.PCM.PN ---
Subjective - Date & Time of Evaluation Date of Evaluation: 08/09/17 Time of Evaluation: 09:00 - Subjective Subjective: or cultures noted overall improved Objective - Vital Signs/Intake and Output Vital Signs (last 24 hours): Temp Pulse Resp BP Pulse Ox 98 F 99 H 20 122/70 99 08/09/17 16:00 08/09/17 16:00 08/09/17 16:00 08/09/17 16:00 08/09/17 16:00 Intake and Output: 08/09/17 08/09/17 06:59 18:59 Intake Total 1040 Balance 1040 - Medications Medications: Current Medications Amlodipine Besylate (Norvasc) 10 mg PO DAILY [facility] Last Admin: 08/09/17 10:16 Dose: 10 mg Aspirin (Aspirin Chewable) 81 mg PO DAILY [facility] Last Admin: 08/09/17 10:17 Dose: 81 mg Clopidogrel Bisulfate (Plavix) 75 mg PO DAILY [facility] Last Admin: 08/09/17 10:16 Dose: 75 mg Enoxaparin Sodium (Lovenox) 40 mg SC DAILY [facility] Last Admin: 08/09/17 10:17 Dose: 40 mg Famotidine (Pepcid) 20 mg PO BID [facility] Last Admin: 08/09/17 10:24 Dose: 20 mg Gabapentin (Neurontin) 600 mg PO TID [facility] Last Admin: 08/09/17 14:00 Dose: 600 mg Hydromorphone HCl (Dilaudid) 0.5 mg IVP Q4 PRN PRN Reason: BREAKTHROUGH Pain Last Admin: 08/09/17 14:04 Dose: 0.5 mg Cefazolin Sodium 1 gm/ Sodium (Chloride) 100 mls @ 100 mls/hr IVPB Q8H [facility] Last Admin: 08/09/17 15:08 Dose: 100 mls/hr Sodium Chloride (Sodium Chloride 0.9%) 1,000 mls @ 100 mls/hr IV .Q10H [facility] Last Admin: 08/07/17 13:33 Dose: 100 mls/hr Dextrose/Sodium Chloride (Dextrose 5%/0.45% Ns 1000 Ml) 1,000 mls @ 80 mls/hr IV .[id number] [facility] Last Admin: 08/09/17 08:14 Dose: 80 mls/hr Piperacillin Sod/Tazobactam (Sod 3.375 gm/ Sodium Chloride) 100 mls @ 100 mls/ hr IVPB Q8H [facility] Last Admin: 08/09/17 08:13 Dose: 100 mls/hr Insulin Aspart (Novolog Mix 70/30 (70/30 Units/Ml)) 25 units SC BID [facility] Last Admin: 08/09/17 09:58 Dose: Not Given Insulin Aspart (Novolog) 0 unit SC [facility] PRN Reason: Protocol Last Admin: 08/09/17 11:46 Dose: Not Given Insulin Glargine (Lantus) 50 unit SC [facility] Last Admin: 08/08/17 21:22 Dose: 50 units Levetiracetam (Keppra) 750 mg PO BID [facility] Last Admin: 08/09/17 10:16 Dose: 750 mg Lisinopril (Zestril) 10 mg PO DAILY [facility] Last Admin: 08/09/17 10:17 Dose: 10 mg Nicotine (Nicoderm Cq) 1 patch TD DAILY [facility] Last Admin: 08/09/17 10:17 Dose: 1 patch Phenobarbital (Phenobarbital Tab) 64.8 mg PO TID [facility] Last Admin: 08/09/17 14:00 Dose: 64.8 mg Rosuvastatin Calcium (Crestor) 5 mg PO [facility] Last Admin: 08/08/17 21:22 Dose: 5 mg Saccharomyces Boulardii (Florastor) 250 mg PO DAILY [facility] Last Admin: 08/09/17 10:23 Dose: 250 mg Tramadol HCl (Ultram) 25 mg PO TID PRN PRN Reason: Pain, moderate (4-7) Last Admin: 08/08/17 18:07 Dose: 25 mg - Labs Labs: 08/08/17 05:23 08/08/17 05:23 PT 10.3 SECONDS (9.7-12.2) 08/05/17 20:14 INR 0.9 08/05/17 20:14 APTT 28 SECONDS (21-34) 08/05/17 20:14 - Constitutional Appears: Non-toxic, Chronically Ill - Head Exam Head Exam: NORMOCEPHALIC - Eye Exam Eye Exam: PERRL - ENT Exam ENT Exam: Mucous Membranes Dry - Neck Exam Neck Exam: absent: Lymphadenopathy - Respiratory Exam Respiratory Exam: Decreased Breath Sounds - Cardiovascular Exam Cardiovascular Exam: REGULAR RHYTHM - GI/Abdominal Exam GI & Abdominal Exam: Distended, Soft. absent: Tenderness - Rectal Exam Rectal Exam: Deferred - Exam Exam: NORMAL INSPECTION - Extremities Exam Extremities Exam: absent: Pedal Edema - Back Exam Back Exam: absent: CVA tenderness (L), CVA tenderness (R) - Neurological Exam Neurological Exam: Alert, Awake, Oriented x3 Neuro motor strength exam: Left Upper Extremity: 5, Right Upper Extremity: 5, Left Lower Extremity: 5, Right Lower Extremity: 5 - Psychiatric Exam Psychiatric exam: Normal Mood - Skin Skin Exam: Dry, Intact Assessment and Plan (1) Abdominal pain Status: Acute (2) Chest pain Status: Acute (3) Diabetes mellitus Status: Acute (4) Hypertension Status: Acute (5) Infected wound Status: Acute - Assessment and Plan (Free Text) Assessment: cont iv antibiotics wound care OR
[2017-08-09] MEDS: (Lantus) Insulin Glargine, Recombinant SC SCH (22:56)
[2017-08-10] MEDS: Piperacillin/Tazobact 3.375 GM in Sodium Chloride 0.9% 100 ML IVPB SCH ×3 (01:14→17:05)
[2017-08-10] MEDS: (Novolog) Insulin Aspart, Recombinant 100 u/ml 10 ml vial SC SCH ×4 (08:03→21:54)
--- NOTE | 2017-08-10 09:01 | CP.PCM.PN ---
Subjective - Date & Time of Evaluation Date of Evaluation: 08/10/17 Time of Evaluation: 10:02 - Subjective Subjective: PGY 2 Medicine Note- Dr. Mejia's service Patient seen and examined in no immediate distress. Patient states that she is to go to the OR today . Patient states that she still has some pain in the labial area. She admits to nonspecific left sided flank pain as well . She states that she has been experiencing weakness since January 2017. She states that the weakness progressed over a four month period. Per nursing, infarct changes were noted on MRI as determined by Radiologist later in the afternoon. Patient denies new onset of weakness, stating that her issues have been present since five months prior. She denies subjective fevers or chills, nausea or vomiting , chest pain or palpitations or headaches at this time. Objective - Vital Signs/Intake and Output Vital Signs (last 24 hours): Temp Pulse Resp BP Pulse Ox 98.6 F 102 H 20 189/102 H 169 H 08/10/17 02:10 08/10/17 06:15 08/10/17 06:15 08/10/17 06:15 08/10/17 02:10 Intake and Output: 08/10/17 08/10/17 06:59 18:59 Intake Total 640 Balance 640 - Medications Medications: Current Medications Amlodipine Besylate (Norvasc) 10 mg PO DAILY [facility] Last Admin: 08/09/17 10:16 Dose: 10 mg Aspirin (Aspirin Chewable) 81 mg PO DAILY [facility] Last Admin: 08/09/17 10:17 Dose: 81 mg Clopidogrel Bisulfate (Plavix) 75 mg PO DAILY [facility] Last Admin: 08/09/17 10:16 Dose: 75 mg Enoxaparin Sodium (Lovenox) 40 mg SC DAILY [facility] Last Admin: 08/09/17 10:17 Dose: 40 mg Famotidine (Pepcid) 20 mg PO BID [facility] Last Admin: 08/09/17 18:09 Dose: 20 mg Gabapentin (Neurontin) 600 mg PO TID [facility] Last Admin: 08/09/17 18:09 Dose: 600 mg Hydromorphone HCl (Dilaudid) 0.5 mg IVP Q4 PRN PRN Reason: BREAKTHROUGH Pain Last Admin: 08/10/17 06:17 Dose: 0.5 mg Sodium Chloride (Sodium Chloride 0.9%) 1,000 mls @ 100 mls/hr IV .Q10H [facility] Last Admin: 08/07/17 13:33 Dose: 100 mls/hr Dextrose/Sodium Chloride (Dextrose 5%/0.45% Ns 1000 Ml) 1,000 mls @ 80 mls/hr IV .[id number] [facility] Last Admin: 08/09/17 21:00 Dose: Not Given Piperacillin Sod/Tazobactam (Sod 3.375 gm/ Sodium Chloride) 100 mls @ 100 mls/ hr IVPB Q8H [facility] Last Admin: 08/10/17 08:09 Dose: 100 mls/hr Insulin Aspart (Novolog Mix 70/30 (70/30 Units/Ml)) 25 units SC BID [facility] Last Admin: 08/09/17 18:10 Dose: 25 units Insulin Aspart (Novolog) 0 unit SC ACHS [facility] PRN Reason: Protocol Last Admin: 08/10/17 08:03 Dose: Not Given Insulin Glargine (Lantus) 50 unit SC [facility] Last Admin: 08/09/17 22:56 Dose: 50 units Levetiracetam (Keppra) 750 mg PO BID [facility] Last Admin: 08/09/17 18:08 Dose: 750 mg Lisinopril (Zestril) 10 mg PO DAILY [facility] Last Admin: 08/09/17 10:17 Dose: 10 mg Nicotine (Nicoderm Cq) 1 patch TD DAILY [facility] Last Admin: 08/09/17 10:17 Dose: 1 patch Phenobarbital (Phenobarbital Tab) 64.8 mg PO TID [facility] Last Admin: 08/09/17 21:17 Dose: 64.8 mg Rosuvastatin Calcium (Crestor) 5 mg PO [facility] Last Admin: 08/09/17 21:19 Dose: 5 mg Saccharomyces Boulardii (Florastor) 250 mg PO DAILY [facility] Last Admin: 08/09/17 10:23 Dose: 250 mg Tramadol HCl (Ultram) 25 mg PO TID PRN PRN Reason: Pain, moderate (4-7) Last Admin: 08/08/17 18:07 Dose: 25 mg - Labs Labs: 08/08/17 05:23 08/08/17 05:23 PT 10.3 SECONDS (9.7-12.2) 08/05/17 20:14 INR 0.9 08/05/17 20:14 APTT 28 SECONDS (21-34) 08/05/17 20:14 - Constitutional Appears: Non-toxic, No Acute Distress - Head Exam Head Exam: ATRAUMATIC, NORMAL INSPECTION, NORMOCEPHALIC - Eye Exam Eye Exam: EOMI, Normal appearance, PERRL Pupil Exam: NORMAL ACCOMODATION - ENT Exam ENT Exam: Mucous Membranes Moist - Neck Exam Neck Exam: Full ROM - Cardiovascular Exam Cardiovascular Exam: +S1, +S2 - GI/Abdominal Exam GI & Abdominal Exam: Soft, Normal Bowel Sounds - Extremities Exam Extremities Exam: Full ROM, Normal Capillary Refill, Pedal Edema - Back Exam Back Exam: Full ROM - Neurological Exam Neurological Exam: Alert, Awake, CN II-XII Intact, Oriented x3 Neuro motor strength exam: Left Upper Extremity: 5, Right Upper Extremity: 5, Left Lower Extremity: 3, Right Lower Extremity: 4 Additional comments: Finger to nose testing intact; limited heel to mcfadden testing, limited sensation on left mcfadden, weakness on left in comparison to the right - Psychiatric Exam Psychiatric exam: Normal Affect, Normal Mood - Skin Skin Exam: Dry, Warm Additional comments: healed scratch ivey noted Assessment and Plan - Assessment and Plan (Free Text) Plan: Lacunar infarcts -Small discrete focal area of restricted diffusion in the right parasagittal frontal subcortical white matter just above the level of the lateral ventricle. Refer to complete report. -F/U Labs and PT/OT recommendations -Patient on ASA, Statin therapy as well -Call placed to Neurologist Dr. Larsen. F/U recommendations Vaginal abscess - General surgery, Dr. Graves is consulted - Training Assistant consulted. Recommend Sitz baths and continuing Abx per ID recs. - ID is consulted. Recommends switching pt to Zosyn - Blood cultures, wound cultures ordered Chest pain R/O ACS - Resolved - Troponins x 3 negative. EKG showed NSR - Echo done yesterday showed normal LV function, mild TR, mild pumonary HTN and questionable pericardial effusion - Cardio, Dr. Rosa is consulted - Continue Aspirin and plavix qd - Continue lisinopril and crestor qd Abd pain - improved - CT scan of abd/pelvis negative - Will continue to monitor - Pain management with dilaudid 1 tab q4 IDDM - Accu check ACHS - Continue home insulin regimen: glargine 50 units SC HS, Novolog 70/30 25 units BID - HgbA1c is 12.1 HLD - Lipid panel checked showed TG 196, Chol 270, LDL 153 HDL 58 - Pt started on Crestor Seizure disorder - Continue home medication: Keppra and phenobarbital - Will check pheobarbital level. Per pts pharmacy, pt has not filled phenobarbital since May CRISTI - Cr previously 1.3 . Will order labs for AM - Will continue to monitor and avoid nephrotoxic drugs Prophylaxis - Protonix - lovenox - PICC line ordered to be placed due to poor vascular access Case discussed with attending. All management and orders per Dr. Mejia
[2017-08-10] MEDS: Dextrose 5%/0.45% NS 1,000 ML IV SCH (09:16)
[2017-08-10] MEDS: (Novolog Mix 70/30) Insulin Aspart/Insulin Aspar 100 units/ml SC SCH ×2 (10:00→17:03)
[2017-08-10] MEDS: Enoxaparin 40 mg Syringe SC SCH (10:01)
[2017-08-10] MEDS: Saccharomyces Boulardi 250 mg Cap PO SCH (10:02)
[2017-08-10] MEDS ORDERED: Midazolam 2 MG/2 ML VIAL ONE (11:31)
[2017-08-10] MEDS ORDERED: Propofol 10 mg/ml Inj (20 ML) ONE (11:32)
[2017-08-10] MEDS ORDERED: Bacitracin Ointment 30 GM TUBE ONE (12:01)
--- NOTE | 2017-08-10 12:15 | MRI ---
PROCEDURE: MRI BRAIN WITHOUT CONTRAST HISTORY: Left leg numbness COMPARISON: Comparison made with CT scan brain 08/07/2017. TECHNIQUE: Multiplanar, multisequence MR images of the brain were obtained without intravenous contrast enhancement. FINDINGS: HEMORRHAGE: None DWI: The current study reveals small discrete focal area of restricted diffusion in the right parasagittal frontal subcortical white matter just above the level of the lateral ventricle ; there is a 2nd smaller and less intense focus of restricted diffusion adjacent and anterior to this focus with an additional faint area of restricted diffusion along the cingulate gyrus region. Collectively these findings are consistent with acute - early subacute infarct changes. Note that these findings were discussed with 6 conner William at approximately 12 p.m. with written down and read back verification. BRAIN PARENCHYMA: There is a small elliptical shaped focus of increased T2 signal in the subcortical white matter right parietal operculum region and within the right cerebellar hemisphere that most consistent with tiny chronic lacunar type infarcts. . No additional focal areas of abnormal signal. There are no obvious parenchymal nor extra-axial masses or collections. Ventricular and sulcal size are within range of normal for this patient's stated age. VENTRICLES: No obstructive hydrocephalus. CRANIUM: Calvarium appears grossly unremarkable unchanged from prior exam. ORBITS: Orbits and contents unremarkable. PARANASAL SINUSES/MASTOIDS: Mild mucosal thickening seen within the ethmoid air complex extending superiorly into the frontal sinus. . Minimal mucosal thickening within the inferior margins both maxillary antra. VASCULAR SYSTEM: Visualized major vascular flow voids at skull base patent. OTHER FINDINGS: None. IMPRESSION: Small discrete focal area of restricted diffusion in the right parasagittal frontal subcortical white matter just above the level of the lateral ventricle ; there is a 2nd smaller and less intense focus of restricted diffusion adjacent and anterior to this focus with an additional faint area of restricted diffusion along the cingulate gyrus region. Collectively these findings are consistent with acute - early subacute infarct changes. Note that these findings were discussed with 6 conner William at approximately 12 p.m. with written down and read back verification. There are a few small chronic lacunar-type infarcts seen in the right cerebellar hemisphere and subcortical white matter right parietal operculum region.
[2017-08-10] MEDS ORDERED: HYDROmorphone 0.5 mg/0.5 ml ISec IVP PRN (12:17)
[2017-08-10 17:51] LABS: BASO # 0.1 K/uL (0.0-0.2); BASO % 0.5 % (0.0-2.0); EOS # 0.4 K/uL (0.0-0.7); EOS % 3.3 % (0.0-4.0); HEMOGLOBIN 10.9 g/dL (11.0-16.0); LYMPH # 2.6 K/uL (1.0-4.3); LYMPH % 22.8 % (20.0-40.0); MEAN CELL VOLUME 95.2 fL (81.0-99.0); MEAN CORPUSCULAR HEMOGLOBIN 32.4 pg (27.0-31.0); MEAN PLATELET VOLUME 8.6 fL (7.2-11.7); MONO # 0.9 K/uL (0.0-0.8); MONO % 7.9 % (0.0-10.0); NEUT # 7.6 K/uL (1.8-7.0); NEUT % 65.5 % (50.0-75.0); RBC 3.37 Mil/uL (3.80-5.20); RED CELL DISTRIBUTION WIDTH 12.7 % (11.5-14.5); WHITE BLOOD COUNT 11.6 K/uL (4.8-10.8)
[2017-08-10 18:19] LABS: LDL CHOLESTEROL 99 mg/dL (0-129)
[2017-08-10 18:22] LABS: ALB/GLOB RATIO 0.8 (1.0-2.1); ALBUMIN 2.9 g/dL (3.5-5.0); ALT/SGPT 21 U/L (9-52); AST/SGOT 18 U/L (14-36); BLOOD UREA NITROGEN 6 mg/dL (7-17); CALCIUM 8.3 mg/dl (8.6-10.4); GFR AFRICAN-AMERICAN > 60; GFR NON-AFRICAN AMERICAN > 60; HDL CHOLESTEROL 57 mg/dL (30-70); MAGNESIUM 1.7 mg/dL (1.6-2.3)
[2017-08-10] MEDS: (Lantus) Insulin Glargine, Recombinant SC SCH (21:31)
[2017-08-11] MEDS: Piperacillin/Tazobact 3.375 GM in Sodium Chloride 0.9% 100 ML IVPB SCH ×3 (00:32→17:02)
--- NOTE | 2017-08-11 03:54 | CON ---
DATE: NEUROLOGY CONSULTATION REASON FOR CONSULTATION: Left leg numbness. HISTORY OF PRESENT ILLNESS: The patient is a 42-year-old female, who has been asked for evaluation of left leg numbness. The patient apparently has been experiencing some numbness in the left leg over the last few weeks. She came to the hospital with abdominal pain and chest pain. The patient denies any focal weakness in arms or legs. She just had her vaginal abscess drained. Denies any weakness in her arms. REVIEW OF SYSTEMS: Denies any headache or dizziness. Positive for chest pain. Positive for abdominal pain. Denies any constipation, diarrhea, cough or sputum production, focal weakness in arms or legs. Positive for tingling and numbness in her feet, as well as numbness in the left lower extremity. PAST MEDICAL HISTORY: Includes anxiety, diabetes mellitus, seizures. PAST SURGICAL HISTORY: Include appendectomy. CURRENT MEDICATIONS: Include aspirin, Crestor, hydromorphone, Keppra 750 mg b.i.d., insulin, Neurontin, Norvasc, NovoLog, Pepcid, phenobarbital, Zosyn, Plavix, tramadol, and lisinopril. ALLERGIES: TO MORPHINE. SOCIAL HISTORY: She does smoke cigarettes. Denies use of alcohol or illicit drugs. FAMILY HISTORY: Reviewed and noncontributory to the case. PHYSICAL EXAMINATION: GENERAL: The patient is a middle-aged female, lying in the bed, in no acute distress. VITAL SIGNS: Her blood pressure is 150/96, heart rate is 87 per minute, breathing at the rate of 16 per minute, and temperature is 97 degrees Fahrenheit. HEENT: Head, normocephalic and atraumatic. NECK: Supple. There are no carotid bruits. LUNGS: Clear. CARDIOVASCULAR SYSTEM: S1 and S2 audible. No murmurs. ABDOMEN: Soft and nontender. Bowel sounds are present. NEUROLOGIC: Mental Status: The patient is awake and alert; oriented to time, place and person. Speech is fluent. Naming and repetition are normal. Memory and cognition are intact. Cranial nerve examination: Pupils are 3 mm bilaterally, reactive to light. Visual sewell are full. Extraocular movements are intact. There is no facial asymmetry. Palate is upgoing bilaterally and tongue is midline. Motor examination: Tone is normal. Power is 4/5 to 5/5 bilaterally in all extremities. Reflexes are +1 in the upper extremities and absent in the lower extremities. Plantars are downgoing bilaterally. Cerebellar examination: [id number] shows no dysmetria. Sensory examination, there is decreased vibration sensation in the feet. May have questionable patchy loss of sensation in the left lower extremity. Gait is deferred at the moment. LABORATORY DATA: Reviewed shows WBC of 13.2 , hemoglobin of 11.9, hematocrit 33.6, platelets of 231. Sodium is 127, potassium 4.0, chloride 99, carbon dioxide 28, BUN of 15, creatinine 0.8, glucose of 229. She had MRI of the brain done which shows small discrete focal area of restricted diffusion in the right parasagittal frontal subcortical white matter just above the level of the lateral ventricles restricted diffusion adjacent and anterior to this focal with an additional faint area of restricted diffusion along the cingulate gyrus. These findings are consistent with early subacute infarct changes. Diffuse small chronic in the right cerebellar hemisphere and subcortical white matter right parietal opercular region. IMPRESSION: 1. Cerebrovascular accident with small acute infarct in the right parasagittal area. 2. Diabetic neuropathy. 3. Seizure disorder. RECOMMENDATION: 1. The patient was started on aspirin and Plavix that she may be continued. 2. The patient also to be continued on statin. 3. The patient to have a carotid Doppler study. 4. The patient also have an echocardiogram. 5. The patient to have physical therapy and occupational therapy evaluation. 6. The patient is currently on Keppra for her seizures which is to be continued. 7. The patient is on tramadol which needs to be stopped with her history of seizures. 8. The patient may continue supportive care and other treatment. Thank you for the opportunity to participate in the care of this patient. Carlyle Larsen MD
[2017-08-11 06:29] LABS: BASO # 0.1 K/uL (0.0-0.2); BASO % 0.5 % (0.0-2.0); EOS # 0.3 K/uL (0.0-0.7); EOS % 3.1 % (0.0-4.0); HEMOGLOBIN 9.9 g/dL (11.0-16.0); LYMPH # 2.7 K/uL (1.0-4.3); LYMPH % 26.6 % (20.0-40.0); MEAN CELL VOLUME 95.1 fL (81.0-99.0); MEAN CORPUSCULAR HEMOGLOBIN 33.1 pg (27.0-31.0); MEAN CORPUSCULAR HGB CONC 34.8 g/dL (33.0-37.0); MEAN PLATELET VOLUME 8.5 fL (7.2-11.7); MONO # 0.9 K/uL (0.0-0.8); MONO % 8.7 % (0.0-10.0); NEUT # 6.2 K/uL (1.8-7.0); NEUT % 61.1 % (50.0-75.0); RED CELL DISTRIBUTION WIDTH 12.5 % (11.5-14.5); WHITE BLOOD COUNT 10.2 K/uL (4.8-10.8)
[2017-08-11 07:41] LABS: ALB/GLOB RATIO 0.8 (1.0-2.1); ALBUMIN 2.5 g/dL (3.5-5.0); ALT/SGPT 17 U/L (9-52); AST/SGOT 18 U/L (14-36); BLOOD UREA NITROGEN 8 mg/dL (7-17); CALCIUM 8.4 mg/dl (8.6-10.4); GFR AFRICAN-AMERICAN > 60; GFR NON-AFRICAN AMERICAN > 60; MAGNESIUM 1.6 mg/dL (1.6-2.3)
--- NOTE | 2017-08-11 08:18 | OP ---
PROCEDURE DATE: 08/10/2017 PREOPERATIVE DIAGNOSIS: Pelvic and vaginal abscess. POSTOPERATIVE DIAGNOSIS: Pelvic and vaginal abscess. PROCEDURE PERFORMED: Re-drainage of pelvic abscess with debridement and a tissue flap closure. SURGEON: Roin Graves MD TYPE OF ANESTHESIA: General. ESTIMATED BLOOD LOSS: 30 mL. POSTOPERATIVE CONDITION: Stable. INDICATIONS FOR SURGERY: This is a 42-year-old female with an extensive abscess of her groin and pelvic area, who is now undergoing debridement closure procedure. DESCRIPTION OF PROCEDURE: The patient was taken to the operating room, general anesthesia administered, she was placed in a lithotomy position. Previous packing was removed and the wound area was prepped and draped. Aggressive debridement was carried out into the pelvic cavity. The bleeding was controlled using the Bovie and larger blood vessel was repaired and the wound was pulse irrigated. Vaginal flaps were raised and then a vaginal flap closure was performed with Monocryl. The patient tolerated the procedure well, returned to recovery room in stable condition. Roni Graves MD
[2017-08-11] MEDS: (Novolog) Insulin Aspart, Recombinant 100 u/ml 10 ml vial SC SCH ×4 (08:28→21:29)
--- NOTE | 2017-08-11 09:22 | CP.PCM.PN ---
Subjective - Date & Time of Evaluation Date of Evaluation: 08/11/17 Time of Evaluation: 12:11 - Subjective Subjective: PGY 2 Medicine note- Dr. Mejia's service Pt seen and examined bedside. Patient states that she feels down because of her medical course. Shes states that she does not want her young daughter to see her spirits down at the moment. Patient states that she was experiencing diarrhea yesterday. She states that she has not yet experienced diarrhea today. She has not been eating her food today because she feels that food may be partly contributing to some of her symptoms. Objective - Vital Signs/Intake and Output Vital Signs (last 24 hours): Temp Pulse Resp BP Pulse Ox 98.0 F 91 H 18 133/82 100 08/11/17 07:10 08/11/17 07:10 08/11/17 07:10 08/11/17 07:10 08/11/17 07:10 Intake and Output: 08/11/17 08/11/17 06:59 18:59 Intake Total 350 Balance 350 - Medications Medications: Current Medications Amlodipine Besylate (Norvasc) 10 mg PO DAILY [facility] Last Admin: 08/10/17 09:55 Dose: 10 mg Aspirin (Aspirin Chewable) 81 mg PO DAILY [facility] Last Admin: 08/10/17 09:54 Dose: 81 mg Clopidogrel Bisulfate (Plavix) 75 mg PO DAILY [facility] Last Admin: 08/10/17 09:54 Dose: 75 mg Enoxaparin Sodium (Lovenox) 40 mg SC DAILY [facility] Last Admin: 08/10/17 10:01 Dose: Not Given Famotidine (Pepcid) 20 mg PO BID [facility] Last Admin: 08/10/17 17:04 Dose: 20 mg Gabapentin (Neurontin) 600 mg PO TID [facility] Last Admin: 08/10/17 17:03 Dose: 600 mg Hydromorphone HCl (Dilaudid) 0.5 mg IVP Q4 PRN PRN Reason: BREAKTHROUGH Pain Last Admin: 08/11/17 05:42 Dose: 0.5 mg Piperacillin Sod/Tazobactam (Sod 3.375 gm/ Sodium Chloride) 100 mls @ 100 mls/ hr IVPB Q8H [facility] Last Admin: 08/11/17 00:32 Dose: 100 mls/hr Insulin Aspart (Novolog Mix 70/30 (70/30 Units/Ml)) 25 units SC BID [facility] Last Admin: 08/10/17 17:03 Dose: 25 units Insulin Aspart (Novolog) 0 unit SC [facility] PRN Reason: Protocol Last Admin: 08/11/17 08:28 Dose: Not Given Insulin Glargine (Lantus) [address] [facility] Last Admin: 08/10/17 21:31 Dose: 50 units Levetiracetam (Keppra) 750 mg PO BID [facility] Last Admin: 08/10/17 17:04 Dose: 750 mg Lisinopril (Zestril) 10 mg PO DAILY [facility] Last Admin: 08/10/17 09:54 Dose: 10 mg Nicotine (Nicoderm Cq) 1 patch TD DAILY [facility] Last Admin: 08/10/17 09:55 Dose: 1 patch Phenobarbital (Phenobarbital Tab) 64.8 mg PO TID [facility] Last Admin: 08/10/17 17:04 Dose: 64.8 mg Rosuvastatin Calcium (Crestor) [address] [facility] Last Admin: 08/10/17 21:30 Dose: 5 mg Saccharomyces Boulardii (Florastor) 250 mg PO DAILY [facility] Last Admin: 08/10/17 10:02 Dose: 250 mg - Labs Labs: 08/11/17 06:21 08/11/17 06:21 PT 10.3 SECONDS (9.7-12.2) 08/05/17 20:14 INR 0.9 08/05/17 20:14 APTT 28 SECONDS (21-34) 08/05/17 20:14 - Constitutional Appears: Non-toxic, No Acute Distress - Head Exam Head Exam: ATRAUMATIC, NORMAL INSPECTION - Eye Exam Eye Exam: EOMI, Normal appearance, PERRL Pupil Exam: NORMAL ACCOMODATION - ENT Exam ENT Exam: Mucous Membranes Moist - Neck Exam Neck Exam: Full ROM - Respiratory Exam Respiratory Exam: NORMAL BREATHING PATTERN - Cardiovascular Exam Cardiovascular Exam: +S1, +S2 - GI/Abdominal Exam GI & Abdominal Exam: Normal Bowel Sounds - Extremities Exam Extremities Exam: Normal Capillary Refill. absent: Full ROM Additional comments: decreased sensation with palpation- left lower extremity - Neurological Exam Neurological Exam: Alert, Awake Neuro motor strength exam: Left Upper Extremity: 5, Right Upper Extremity: 5, Left Lower Extremity: 3, Right Lower Extremity: 4 - Psychiatric Exam Psychiatric exam: Normal Affect, Normal Mood Additional comments: would not consider depressed- moreso situational low level sadness - Skin Skin Exam: Normal Color, Warm Assessment and Plan - Assessment and Plan (Free Text) Assessment: Lacunar infarcts -Small discrete focal area of restricted diffusion in the right parasagittal frontal subcortical white matter just above the level of the lateral ventricle. Refer to complete report. -F/U Labs and PT/OT recommendations -Patient on ASA, Statin therapy as well -Call placed to Neurologist Dr. Larsen. Recommendations for Carotid dopplers. Will follow up. -Echo obtained on 08/06 showed normal LV function, mild TR, mild pumonary HTN and questionable pericardial effusion Vaginal abscess - General surgery, Dr. Graves is consulted - Insulation Sprayer Recommendations for Sitz baths and continuing Abx per ID recs. - ID Recommendations for Zosyn - Blood cultures, wound cultures ordered -GC/Chlamydia negative Diarrhea Monitor- has not had diarrhea today C diff studies- negative Chest pain R/O ACS - Resolved - Troponins x 3 negative. EKG showed NSR - Echo done yesterday showed normal LV function, mild TR, mild pumonary HTN and questionable pericardial effusion - Cardio, Dr. Rosa is consulted - Continue Aspirin and plavix qd - Continue lisinopril and crestor qd Abd pain - improved - CT scan of abd/pelvis negative - Will continue to monitor - Pain management with dilaudid 1 tab q4 IDDM - Accu check ACHS - Continue home insulin regimen: glargine 50 units SC HS, Novolog 70/30 25 units BID - HgbA1c is 12.1 HLD - Lipid panel checked showed TG 196, Chol 270, LDL 153 HDL 58 - Pt started on Crestor Seizure disorder - Continue home medication: Keppra and phenobarbital - Phenobarbital level 15.6. Per pts pharmacy, pt has not filled phenobarbital since May CRISTI -Resolved - Will continue to monitor and avoid nephrotoxic drugs Adjustment Disorder -Situational due to current hospitalization -Spoke at length with patient -Will hold off on placing psych consult at this time Prophylaxis - Protonix - Lovenox Dispo: Can begin discharge planning once patient is seen and evaluated by physical therapy. Patient would benefit from outpatient rehab services however she would rather go home with home services once workup is complete because she has to take care of her daughter. Will follow up. Case discussed with attending. All management and orders per Dr. Mejia
[2017-08-11] MEDS: Saccharomyces Boulardi 250 mg Cap PO SCH (10:30)
[2017-08-11] MEDS: Enoxaparin 40 mg Syringe SC SCH (10:30)
[2017-08-11] MEDS: (Novolog Mix 70/30) Insulin Aspart/Insulin Aspar 100 units/ml SC SCH ×2 (11:01→18:08)
--- NOTE | 2017-08-11 13:26 | VASCLAB ---
PROCEDURE: HISTORY: cva COMPARISON: None available. TECHNIQUE: Grayscale and duplex Doppler evaluation of the cervical carotid and vertebral arteries were performed. The common carotid, carotid bifurcations and cervical Internal Carotid Artery (ICA) and proximal External Carotid Artery (ECA) were evaluated. The vertebral arteries were evaluated for gross patency and flow direction. Report prepared by RIOS Lugo FINDINGS: RIGHT CAROTID ARTERIES: 1. Common Carotid Artery: No significant focal plaque formation of the right common carotid artery. Maximum Peak Systolic velocity: 83 cm/sec: End-diastolic velocity 23 cm/sec. 2. Carotid Bifurcation: plaque formation. Maximum Peak Systolic velocity: 61 cm/sec: End-diastolic velocity 18 cm/sec. 3. Internal Carotid Artery: Plaque description: 3.1. Proximal Segment: Peak systolic velocity 78 cm/sec: End-diastolic velocity 30 cm/sec - % stenosis 0-15% 3.2. Middle Segment: Peak systolic velocity 83 cm/sec: End-diastolic velocity 42 cm/sec - % stenosis 0-15% 3.3. Distal Segment: Peak systolic velocity 84 cm/sec: End-diastolic velocity 39 cm/sec - % stenosis 0-15% 4. External Carotid Artery: No significant focal plaque formation. Peak systolic velocity 90 cm/sec 5. ICA/CCA Ratio: 1.0 LEFT CAROTID ARTERIES: 1. Common Carotid Artery: No significant focal plaque formation of the left common carotid artery. Maximum Peak Systolic velocity: 90 cm/sec: End-diastolic velocity 27 cm/sec. 2. Carotid Bifurcation: plaque formation. Maximum Peak Systolic velocity: 54 cm/sec: End-diastolic velocity 17 cm/sec. 3. Internal Carotid Artery: Plaque description: 3.1. Proximal Segment: Peak systolic velocity 55 cm/sec: End-diastolic velocity 25 cm/sec - % stenosis 0-15% 3.2. Middle Segment: Peak systolic velocity 66 cm/sec: End-diastolic velocity 27 cm/sec - % stenosis 0-15% 3.3. Distal Segment: Peak systolic velocity 69 cm/sec: End-diastolic velocity 27 cm/sec - % stenosis 0-15% 4. External Carotid Artery: No significant focal plaque formation. Peak systolic velocity 61 cm/sec 5. ICA/CCA Ratio: 0.8 VERTEBRAL ARTERIES: 1. Right Vertebral Artery: The right vertebral artery flow direction is antegrade. 2. Left Vertebral Artery: The left vertebral artery flow direction is antegrade. OTHER FINDINGS: 1. Right Brachial Blood pressure: mmHg. 2. Left Brachial Blood pressure: 100 mmHg. IMPRESSION: RIGHT: Duplex scan does not suggest hemodynamically significant stenosis of the right extracranial carotid arteries. LEFT: Duplex scan does not suggest hemodynamically significant stenosis of the left extracranial carotid arteries.
[2017-08-11] MEDS: Aritificial Tears (15ml) OU SCH ×2 (17:01→22:17)
[2017-08-11] MEDS: (Lantus) Insulin Glargine, Recombinant SC SCH (22:18)
[2017-08-12] MEDS: Piperacillin/Tazobact 3.375 GM in Sodium Chloride 0.9% 100 ML IVPB SCH ×3 (00:54→17:15)
[2017-08-12 07:10] LABS: BASO % 0.5 % (0.0-2.0); EOS # 0.3 K/uL (0.0-0.7); EOS % 3.1 % (0.0-4.0); HEMOGLOBIN 10.2 g/dL (11.0-16.0); LYMPH # 2.8 K/uL (1.0-4.3); LYMPH % 25.8 % (20.0-40.0); MEAN CELL VOLUME 95.4 fL (81.0-99.0); MEAN CORPUSCULAR HEMOGLOBIN 33.2 pg (27.0-31.0); MEAN CORPUSCULAR HGB CONC 34.8 g/dL (33.0-37.0); MEAN PLATELET VOLUME 8.3 fL (7.2-11.7); MONO % 9.4 % (0.0-10.0); NEUT # 6.7 K/uL (1.8-7.0); NEUT % 61.2 % (50.0-75.0); RBC 3.07 Mil/uL (3.80-5.20); RED CELL DISTRIBUTION WIDTH 12.4 % (11.5-14.5); WHITE BLOOD COUNT 10.9 K/uL (4.8-10.8)
[2017-08-12 07:41] LABS: ALB/GLOB RATIO 0.9 (1.0-2.1); ALBUMIN 2.6 g/dL (3.5-5.0); ALT/SGPT 23 U/L (9-52); AST/SGOT 16 U/L (14-36); BLOOD UREA NITROGEN 12 mg/dL (7-17); CALCIUM 8.3 mg/dl (8.6-10.4); GFR AFRICAN-AMERICAN > 60; GFR NON-AFRICAN AMERICAN > 60; MAGNESIUM 1.7 mg/dL (1.6-2.3)
[2017-08-12] MEDS: (Novolog) Insulin Aspart, Recombinant 100 u/ml 10 ml vial SC SCH ×4 (09:56→21:55)
[2017-08-12] MEDS: Aritificial Tears (15ml) OU SCH ×2 (10:02→21:56)
[2017-08-12] MEDS: Saccharomyces Boulardi 250 mg Cap PO SCH (10:03)
[2017-08-12] MEDS: Enoxaparin 40 mg Syringe SC SCH (10:04)
[2017-08-12] MEDS: HYDROmorphone 0.5 mg/0.5 ml ISec IVP PRN ×4 (10:27→21:58)
[2017-08-12] MEDS: (Novolog Mix 70/30) Insulin Aspart/Insulin Aspar 100 units/ml SC SCH ×2 (10:55→17:56)
--- NOTE | 2017-08-12 14:53 | CP.PCM.PN ---
Subjective - Date & Time of Evaluation Date of Evaluation: 08/12/17 Time of Evaluation: 08:00 - Subjective Subjective: PGY 2 Medicine note- Dr. Mejia's service Pt seen and examined bedside. Patient states that she feels down because of her medical course. She states that she will try to go to rehab but expresses that if the care is bad there then she will be leaving. Patient is having difficulties walking so we explained to her that she really should try to go to rehab instead of home PT. Objective - Vital Signs/Intake and Output Vital Signs (last 24 hours): Temp Pulse Resp BP Pulse Ox 98.0 F 101 H 18 116/82 94 L 08/12/17 08:23 08/12/17 14:15 08/12/17 08:23 08/12/17 08:23 08/12/17 08:23 Intake and Output: 08/12/17 08/12/17 06:59 18:59 Intake Total 750 450 Balance 750 450 - Medications Medications: Current Medications Amlodipine Besylate (Norvasc) 10 mg PO DAILY [facility] Last Admin: 08/12/17 10:06 Dose: 10 mg Artificial Tears (Artificial Tears) 0 ml OU Q12 [facility] Last Admin: 08/12/17 10:02 Dose: 1 drop Aspirin (Aspirin Chewable) 81 mg PO DAILY [facility] Last Admin: 08/12/17 10:03 Dose: 81 mg Clopidogrel Bisulfate (Plavix) 75 mg PO DAILY [facility] Last Admin: 08/12/17 10:08 Dose: 75 mg Enoxaparin Sodium (Lovenox) 40 mg SC DAILY [facility] Last Admin: 08/12/17 10:04 Dose: 40 mg Famotidine (Pepcid) 20 mg PO BID [facility] Last Admin: 08/12/17 10:06 Dose: 20 mg Gabapentin (Neurontin) 600 mg PO TID [facility] Last Admin: 08/12/17 13:14 Dose: 600 mg Hydromorphone HCl (Dilaudid) 0.5 mg IVP Q4H PRN PRN Reason: Pain, severe (8-10) Last Admin: 08/12/17 14:31 Dose: 0.5 mg Piperacillin Sod/Tazobactam (Sod 3.375 gm/ Sodium Chloride) 100 mls @ 100 mls/ hr IVPB Q8H [facility] Last Admin: 08/12/17 10:51 Dose: 100 mls/hr Insulin Aspart (Novolog Mix 70/30 (70/30 Units/Ml)) 25 units SC BID [facility] Last Admin: 08/12/17 10:55 Dose: Not Given Insulin Aspart (Novolog) 0 unit SC [facility] PRN Reason: Protocol Last Admin: 08/12/17 12:23 Dose: Not Given Insulin Glargine (Lantus) 50 unit SC [facility] Last Admin: 08/11/17 22:18 Dose: 50 units Levetiracetam (Keppra) 750 mg PO BID [facility] Last Admin: 08/12/17 10:03 Dose: 750 mg Lisinopril (Zestril) 10 mg PO DAILY [facility] Last Admin: 08/12/17 10:08 Dose: 10 mg Nicotine (Nicoderm Cq) 1 patch TD DAILY [facility] Last Admin: 08/12/17 10:06 Dose: 1 patch Phenobarbital (Phenobarbital Tab) 64.8 mg PO TID [facility] Last Admin: 08/12/17 13:14 Dose: 64.8 mg Rosuvastatin Calcium (Crestor) 5 mg PO [facility] Last Admin: 08/11/17 22:17 Dose: 5 mg Saccharomyces Boulardii (Florastor) 250 mg PO DAILY [facility] Last Admin: 08/12/17 10:03 Dose: 250 mg - Labs Labs: 08/12/17 06:59 08/12/17 06:59 PT 10.3 SECONDS (9.7-12.2) 08/05/17 20:14 INR 0.9 08/05/17 20:14 APTT 28 SECONDS (21-34) 08/05/17 20:14 - Constitutional Appears: Non-toxic, No Acute Distress - Head Exam Head Exam: ATRAUMATIC, NORMAL INSPECTION - Eye Exam Eye Exam: EOMI Pupil Exam: NORMAL ACCOMODATION - ENT Exam ENT Exam: Mucous Membranes Moist - Respiratory Exam Respiratory Exam: Clear to Ausculation Bilateral, NORMAL BREATHING PATTERN. absent: Respiratory Distress - Cardiovascular Exam Cardiovascular Exam: REGULAR RHYTHM, +S1, +S2 - GI/Abdominal Exam GI & Abdominal Exam: Soft, Normal Bowel Sounds. absent: Distended, Firm, Guarding, Tenderness - Extremities Exam Extremities Exam: Pedal Edema. absent: Normal Inspection - Back Exam Back Exam: NORMAL INSPECTION - Neurological Exam Neurological Exam: Alert, Awake, Oriented x3 - Psychiatric Exam Psychiatric exam: Normal Affect, Normal Mood - Skin Skin Exam: Normal Color Assessment and Plan - Assessment and Plan (Free Text) Assessment: Lacunar infarcts -Small discrete focal area of restricted diffusion in the right parasagittal frontal subcortical white matter just above the level of the lateral ventricle. Refer to complete report. -F/U Labs and PT/OT recommendations - patient rec PRIYA, but has been refusing. Today she stated she would try -Patient on ASA, Statin therapy as well -Call placed to Neurologist Dr. Larsen. Recommendations for Carotid dopplers. Will follow up. -Echo obtained on 08/06 showed normal LV function, mild TR, mild pumonary HTN and questionable pericardial effusion Vaginal abscess - General surgery, Dr. Graves is consulted - Transportation Dispatch Manager Recommendations for Sitz baths and continuing Abx per ID recs. - ID Recommendations for Zosyn - Blood cultures, wound cultures ordered -GC/Chlamydia negative Diarrhea Monitor- has not had diarrhea today C diff studies- negative Chest pain R/O ACS - Resolved - Troponins x 3 negative. EKG showed NSR - Echo done yesterday showed normal LV function, mild TR, mild pumonary HTN and questionable pericardial effusion - Cardio, Dr. Rosa is consulted - Continue Aspirin and plavix qd - Continue lisinopril and crestor qd Abd pain - improved - CT scan of abd/pelvis negative - Will continue to monitor - Pain management with dilaudid 1 tab q4 IDDM - Accu check ACHS - Continue home insulin regimen: glargine 50 units SC HS, Novolog 70/30 25 units BID - HgbA1c is 12.1 HLD - Lipid panel checked showed TG 196, Chol 270, LDL 153 HDL 58 - Pt started on Crestor Seizure disorder - Continue home medication: Keppra and phenobarbital - Phenobarbital level 15.6. Per pts pharmacy, pt has not filled phenobarbital since May CRISTI -Resolved - Will continue to monitor and avoid nephrotoxic drugs Adjustment Disorder -Situational due to current hospitalization -Spoke at length with patient -Will hold off on placing psych consult at this time Prophylaxis - Protonix - Lovenox Dispo: Can begin discharge planning once patient is seen and evaluated by physical therapy. Patient would benefit from outpatient rehab services however she would rather go home with home services once workup is complete because she has to take care of her daughter. Will follow up. Today she is agreeing to go to [facility] [place]. Would prefer [facility] or [facility]. Case discussed with attending. All management and orders per Dr. Mejia
[2017-08-12] MEDS ORDERED: Bacitracin Ointment 30 GM TUBE TOP PRN (16:09)
--- NOTE | 2017-08-12 19:03 | CP.PCM.PN ---
Subjective - Date & Time of Evaluation Date of Evaluation: 08/12/17 Time of Evaluation: 08:00 - Subjective Subjective: improving afebrile IV rx renewed Objective - Vital Signs/Intake and Output Vital Signs (last 24 hours): Temp Pulse Resp BP Pulse Ox 98.3 F 90 20 113/76 97 08/12/17 15:12 08/12/17 16:00 08/12/17 15:12 08/12/17 15:12 08/12/17 15:12 Intake and Output: 08/12/17 08/13/17 18:59 06:59 Intake Total 450 Balance 450 - Medications Medications: Current Medications Amlodipine Besylate (Norvasc) 10 mg PO DAILY [facility] Last Admin: 08/12/17 10:06 Dose: 10 mg Artificial Tears (Artificial Tears) 0 ml OU Q12 [facility] Last Admin: 08/12/17 10:02 Dose: 1 drop Aspirin (Aspirin Chewable) 81 mg PO DAILY [facility] Last Admin: 08/12/17 10:03 Dose: 81 mg Bacitracin (Bacitracin) 1 gm TOP DAILY PRN PRN Reason: Apply on Left Labia Clopidogrel Bisulfate (Plavix) 75 mg PO DAILY [facility] Last Admin: 08/12/17 10:08 Dose: 75 mg Enoxaparin Sodium (Lovenox) 40 mg SC DAILY [facility] Last Admin: 08/12/17 10:04 Dose: 40 mg Famotidine (Pepcid) 20 mg PO BID [facility] Last Admin: 08/12/17 17:54 Dose: 20 mg Gabapentin (Neurontin) 600 mg PO TID [facility] Last Admin: 08/12/17 17:55 Dose: 600 mg Hydromorphone HCl (Dilaudid) 0.5 mg IVP Q4H PRN PRN Reason: Pain, severe (8-10) Last Admin: 08/12/17 18:02 Dose: 0.5 mg Piperacillin Sod/Tazobactam (Sod 3.375 gm/ Sodium Chloride) 100 mls @ 100 mls/ hr IVPB Q8H [facility] Stop: 08/12/17 21:10 Last Admin: 08/12/17 17:15 Dose: 100 mls/hr Piperacillin Sod/Tazobactam Sod (Zosyn 3.375 Gm Iv Premix) 3.375 gm in 50 mls @ 100 mls/hr IVPB Q8H [facility] Insulin Aspart (Novolog Mix 70/30 (70/30 Units/Ml)) 25 units SC BID [facility] Last Admin: 08/12/17 17:56 Dose: 25 units Insulin Aspart (Novolog) 0 unit SC [facility] PRN Reason: Protocol Last Admin: 08/12/17 17:15 Dose: 4 unit Insulin Glargine (Lantus) 50 unit SC [facility] Last Admin: 08/11/17 22:18 Dose: 50 units Levetiracetam (Keppra) 750 mg PO BID [facility] Last Admin: 08/12/17 17:55 Dose: 750 mg Lisinopril (Zestril) 10 mg PO DAILY [facility] Last Admin: 08/12/17 10:08 Dose: 10 mg Nicotine (Nicoderm Cq) 1 patch TD DAILY [facility] Last Admin: 08/12/17 10:06 Dose: 1 patch Phenobarbital (Phenobarbital Tab) 64.8 mg PO TID [facility] Last Admin: 08/12/17 17:55 Dose: 64.8 mg Rosuvastatin Calcium (Crestor) 5 mg PO [facility] Last Admin: 08/11/17 22:17 Dose: 5 mg Saccharomyces Boulardii (Florastor) 250 mg PO DAILY [facility] Last Admin: 08/12/17 10:03 Dose: 250 mg - Labs Labs: 08/12/17 06:59 08/12/17 06:59 PT 10.3 SECONDS (9.7-12.2) 08/05/17 20:14 INR 0.9 08/05/17 20:14 APTT 28 SECONDS (21-34) 08/05/17 20:14 - Constitutional Appears: Non-toxic, Chronically Ill - Head Exam Head Exam: NORMOCEPHALIC - Eye Exam Eye Exam: PERRL - ENT Exam ENT Exam: Mucous Membranes Dry - Neck Exam Neck Exam: absent: Lymphadenopathy - Respiratory Exam Respiratory Exam: Decreased Breath Sounds - Cardiovascular Exam Cardiovascular Exam: REGULAR RHYTHM - GI/Abdominal Exam GI & Abdominal Exam: Distended - Rectal Exam Rectal Exam: Deferred - Exam Exam: NORMAL INSPECTION - Extremities Exam Extremities Exam: absent: Pedal Edema - Back Exam Back Exam: absent: CVA tenderness (L), CVA tenderness (R) - Neurological Exam Neurological Exam: Alert, Awake Assessment and Plan (1) Abdominal pain Status: Acute (2) Chest pain Status: Acute (3) Diabetes mellitus Status: Acute (4) Hypertension Status: Acute (5) Infected wound Status: Acute
[2017-08-12] MEDS: (Lantus) Insulin Glargine, Recombinant SC SCH (21:56)
[2017-08-13] MEDS: Piperacill/Tazo 3.375gm in Dex 3.375 GM/50 ML BAG IVPB SCH ×2 (00:39→08:03)
[2017-08-13] MEDS: (Novolog) Insulin Aspart, Recombinant 100 u/ml 10 ml vial SC SCH ×2 (07:28→12:06)
[2017-08-13 07:47] VITALS: BP 156/99; RESP 18; TEMP 97.3; O2SAT 98
[2017-08-13 07:47] LABS: BASO % 0.5 % (0.0-2.0); EOS # 0.4 K/uL (0.0-0.7); EOS % 3.8 % (0.0-4.0); HEMOGLOBIN 9.2 g/dL (11.0-16.0); LYMPH # 2.9 K/uL (1.0-4.3); LYMPH % 31.1 % (20.0-40.0); MEAN CELL VOLUME 95.5 fL (81.0-99.0); MEAN CORPUSCULAR HEMOGLOBIN 33.2 pg (27.0-31.0); MEAN CORPUSCULAR HGB CONC 34.8 g/dL (33.0-37.0); MEAN PLATELET VOLUME 8.5 fL (7.2-11.7); MONO # 0.8 K/uL (0.0-0.8); MONO % 8.5 % (0.0-10.0); NEUT # 5.3 K/uL (1.8-7.0); NEUT % 56.1 % (50.0-75.0); RBC 2.77 Mil/uL (3.80-5.20); RED CELL DISTRIBUTION WIDTH 12.6 % (11.5-14.5); WHITE BLOOD COUNT 9.5 K/uL (4.8-10.8)
[2017-08-13 08:06] LABS: BLOOD UREA NITROGEN 9 mg/dL (7-17); CALCIUM 8.3 mg/dl (8.6-10.4); GFR AFRICAN-AMERICAN > 60; GFR NON-AFRICAN AMERICAN > 60; MAGNESIUM 1.8 mg/dL (1.6-2.3)
[2017-08-13] MEDS: Enoxaparin 40 mg Syringe SC SCH (08:59)
[2017-08-13] MEDS: Aritificial Tears (15ml) OU SCH (08:59)
[2017-08-13] MEDS: Saccharomyces Boulardi 250 mg Cap PO SCH (08:59)
[2017-08-13] MEDS: (Novolog Mix 70/30) Insulin Aspart/Insulin Aspar 100 units/ml SC SCH (09:04)
--- NOTE | 2017-08-13 11:00 | CP.PCM.PN ---
Subjective - Date & Time of Evaluation Date of Evaluation: 08/13/17 Time of Evaluation: 07:00 - Subjective Subjective: PGY 2 Medicine note- Dr. Mejia's service Pt seen and examined bedside. Patient has no complaints today except that she feels weak while walking. She has agreed to go to rehab. She is for placement today. Objective - Vital Signs/Intake and Output Vital Signs (last 24 hours): Temp Pulse Resp BP Pulse Ox 97.3 F L 85 18 156/99 H 98 08/13/17 07:20 08/13/17 07:33 08/13/17 07:20 08/13/17 07:20 08/13/17 07:20 Intake and Output: 08/13/17 08/13/17 06:59 18:59 Intake Total 900 Output Total 950 Balance -50 - Medications Medications: Current Medications Amlodipine Besylate (Norvasc) 10 mg PO DAILY [facility] Last Admin: 08/13/17 08:59 Dose: 10 mg Artificial Tears (Artificial Tears) 0 ml OU Q12 [facility] Last Admin: 08/13/17 08:59 Dose: 2 drop Aspirin (Aspirin Chewable) 81 mg PO DAILY [facility] Last Admin: 08/13/17 08:59 Dose: 81 mg Bacitracin (Bacitracin) 1 gm TOP DAILY PRN PRN Reason: Apply on Left Labia Last Admin: 08/13/17 09:00 Dose: 1 appl Clopidogrel Bisulfate (Plavix) 75 mg PO DAILY [facility] Last Admin: 08/13/17 08:59 Dose: 75 mg Enoxaparin Sodium (Lovenox) 40 mg SC DAILY [facility] Last Admin: 08/13/17 08:59 Dose: 40 mg Famotidine (Pepcid) 20 mg PO BID [facility] Last Admin: 08/13/17 08:59 Dose: 20 mg Gabapentin (Neurontin) 600 mg PO TID [facility] Last Admin: 08/13/17 08:59 Dose: 600 mg Hydromorphone HCl (Dilaudid) 0.5 mg IVP Q4H PRN PRN Reason: Pain, severe (8-10) Last Admin: 08/13/17 08:00 Dose: 0.5 mg Piperacillin Sod/Tazobactam Sod (Zosyn 3.375 Gm Iv Premix) 3.375 gm in 50 mls @ 100 mls/hr IVPB Q8H [facility] Last Admin: 08/13/17 08:03 Dose: 100 mls/hr Insulin Aspart (Novolog Mix 70/30 (70/30 Units/Ml)) 25 units SC BID [facility] Last Admin: 08/13/17 09:04 Dose: Not Given Insulin Aspart (Novolog) 0 unit SC [facility] PRN Reason: Protocol Last Admin: 08/13/17 07:28 Dose: Not Given Insulin Glargine (Lantus) 50 unit SC [facility] Last Admin: 08/12/17 21:56 Dose: 50 units Levetiracetam (Keppra) 750 mg PO BID [facility] Last Admin: 08/13/17 09:04 Dose: 750 mg Lisinopril (Zestril) 10 mg PO DAILY [facility] Last Admin: 08/13/17 08:59 Dose: 10 mg Nicotine (Nicoderm Cq) 1 patch TD DAILY [facility] Last Admin: 08/13/17 08:59 Dose: 1 patch Phenobarbital (Phenobarbital Tab) 64.8 mg PO TID [facility] Last Admin: 08/13/17 08:59 Dose: 64.8 mg Rosuvastatin Calcium (Crestor) 5 mg PO [facility] Last Admin: 08/12/17 21:56 Dose: 5 mg Saccharomyces Boulardii (Florastor) 250 mg PO DAILY [facility] Last Admin: 08/13/17 08:59 Dose: 250 mg - Labs Labs: 08/13/17 07:03 08/13/17 07:03 PT 10.3 SECONDS (9.7-12.2) 08/05/17 20:14 INR 0.9 08/05/17 20:14 APTT 28 SECONDS (21-34) 08/05/17 20:14 - Constitutional Appears: Non-toxic, No Acute Distress - Head Exam Head Exam: ATRAUMATIC, NORMAL INSPECTION - Eye Exam Eye Exam: EOMI Pupil Exam: NORMAL ACCOMODATION - ENT Exam ENT Exam: Mucous Membranes Moist - Neck Exam Neck Exam: Full ROM - Respiratory Exam Respiratory Exam: Clear to Ausculation Bilateral, NORMAL BREATHING PATTERN. absent: Accessory Muscle Use, Respiratory Distress - Cardiovascular Exam Cardiovascular Exam: REGULAR RHYTHM, +S1, +S2 - GI/Abdominal Exam GI & Abdominal Exam: Soft, Normal Bowel Sounds. absent: Distended, Firm, Guarding, Tenderness - Extremities Exam Extremities Exam: Normal Inspection Additional comments: decreased sensation with palpation- left lower extremity - Back Exam Back Exam: absent: CVA tenderness (L), CVA tenderness (R), NORMAL INSPECTION, paraspinal tenderness - Neurological Exam Neurological Exam: Alert, Awake, CN II-XII Intact, Oriented x3 - Psychiatric Exam Psychiatric exam: Normal Affect, Normal Mood - Skin Skin Exam: Dry, Intact, Normal Color, Warm Assessment and Plan - Assessment and Plan (Free Text) Assessment: Lacunar infarcts -Small discrete focal area of restricted diffusion in the right parasagittal frontal subcortical white matter just above the level of the lateral ventricle. Refer to complete report. -F/U Labs and PT/OT recommendations: Patient needs maximum assist and needs help to ambulate -Patient on ASA, Statin therapy as well -Call placed to Neurologist Dr. Larsen. Recommendations for Carotid dopplers. Will follow up. -Echo obtained on 08/06 showed normal LV function, mild TR, mild pumonary HTN and questionable pericardial effusion Vaginal abscess - General surgery, Dr. Graves is consulted - Inspector Publications Recommendations for Sitz baths and continuing Abx per ID recs. - ID Recommendations for Zosyn - Blood cultures, wound cultures ordered -GC/Chlamydia negative Diarrhea Monitor- has not had diarrhea today C diff studies- negative Chest pain R/O ACS - Resolved - Troponins x 3 negative. EKG showed NSR - Echo done yesterday showed normal LV function, mild TR, mild pumonary HTN and questionable pericardial effusion - Cardio, Dr. Rosa is consulted - Continue Aspirin and plavix qd - Continue lisinopril and crestor qd Abd pain - improved - CT scan of abd/pelvis negative - Will continue to monitor - Pain management with dilaudid 1 tab q4 IDDM - Accu check ACHS - Continue home insulin regimen: glargine 50 units SC HS, Novolog 70/30 25 units BID - HgbA1c is 12.1 HLD - Lipid panel checked showed TG 196, Chol 270, LDL 153 HDL 58 - Pt started on Crestor Seizure disorder - Continue home medication: Keppra and phenobarbital - Phenobarbital level 15.6. Per pts pharmacy, pt has not filled phenobarbital since May CRISTI -Resolved - Will continue to monitor and avoid nephrotoxic drugs Adjustment Disorder -Situational due to current hospitalization -Spoke at length with patient -Will hold off on placing psych consult at this time Prophylaxis - Protonix - Lovenox Dispo: Patient pending acceptance to rehab. Patient is stable for DC to rehab when bed is available. She is to resume all of her current medications. Patient is to see Dr. Mejia within one week of discharge for post hospital care. Patient will need to continue IV ABX (Zosyn for 7 more days). All instructions explained to the patient and she agrees. Case discussed with attending. All management and orders per Dr. Mejia
[2017-08-13 12:20] VITALS: PULSE 94
--- NOTE | 2017-08-19 07:13 | DS ---
SUMMARY: The patient admitted to the hospital with left-sided weakness and vulvar abscess. The patient had brain MRI which showed CVA. The patient received physical therapy, IV antibiotics, transferred to acute rehab. DIAGNOSES: Acute cerebrovascular accident, uncontrolled diabetes, vulvar abscess. Antonio Mejia MD
== END 2017-08-13 15:45 | DRG 988 ==
LOC: C.ER 17:52 → C.9E 22:55 → C.6T 08-06 09:05
PROVIDERS: ADMIT Internal Medicine Pulmonary Disease; ATTEND Internal Medicine Pulmonary Disease
PROC: 0J9B0ZZ Drainage of Perineum Subcutaneous Tissue and Fascia, Open Approach (ICD-10-PCS; 2017-08-07)
PROC: 0W9J3ZZ Drainage of Pelvic Cavity, Percutaneous Approach (ICD-10-PCS; 2017-08-07)
PROC: 0JBC3ZZ Excision of Pelvic Region Subcutaneous Tissue and Fascia, Percutaneous Approach (ICD-10-PCS; 2017-08-07)
PROC: 0JBB3ZZ Excision of Perineum Subcutaneous Tissue and Fascia, Percutaneous Approach (ICD-10-PCS; 2017-08-07)
PROC: 02HV33Z Insertion of Infusion Device into Superior Vena Cava, Percutaneous Approach (ICD-10-PCS; 2017-08-07)
PROC: 0U9M0ZZ Drainage of Vulva, Open Approach (ICD-10-PCS; principal; 2017-08-07 16:00)
PROC: 0HBAXZZ Excision of Inguinal Skin, External Approach (ICD-10-PCS; 2017-08-08)
DX: I63.9 Cerebral infarction, unspecified (principal); N73.0 Acute parametritis and pelvic cellulitis; N17.9 Acute kidney failure, unspecified; E10.40 Type 1 diabetes mellitus with diabetic neuropathy, unspecified; E10.65 Type 1 diabetes mellitus with hyperglycemia; I24.9 Acute ischemic heart disease, unspecified; K61.3 Ischiorectal abscess; N76.4 Abscess of vulva; N76.0 Acute vaginitis; J45.909 Unspecified asthma, uncomplicated; I10 Essential (primary) hypertension; G40.909 Epilepsy, unspecified, not intractable, without status epilepticus; E78.5 Hyperlipidemia, unspecified; F17.210 Nicotine dependence, cigarettes, uncomplicated; F43.20 Adjustment disorder, unspecified; I65.29 Occlusion and stenosis of unspecified carotid artery; N73.9 Female pelvic inflammatory disease, unspecified; Z91.14 Patient's other noncompliance with medication regimen; Z79.4 Long term (current) use of insulin; Z79.02 Long term (current) use of antithrombotics/antiplatelets; Z79.82 Long term (current) use of aspirin; Z90.49 Acquired absence of other specified parts of digestive tract

== ENCOUNTER 2017-09-07 17:40 | Emergency (ER) | payer MEDICARE, OTHER ==
[2017-09-07 17:40] VITALS: BMI 27.0
--- NOTE | 2017-09-07 18:21 | C.PDOC ---
History Of Present Illness 42 y/o female presents to the ER complaining of LUQ pain which has been present for more than 1 month. Patient visited [facility] ER on 08/05/17 complaining of abdominal pain and left-sided parasthesia and she was admitted in the hospital. A CAT scan on 08/07/17 showed scattered subcortical changes which appeared to be chronic. AN MRI of the brain on 08/10/17 showed subacute subcortical changes. Patient was discharged to a rehab center where she stayed from 08/14/17 - 08/23/17. Patient was discharged with Percocet x 30 tabs. Patient reports that she finished the course of Percocet. Patient would like to have an evaluation of her LUQ pain. Time Seen by Provider: 09/07/17 18:01 Chief Complaint (Nursing): Abdominal Pain History Per: Patient History/Exam Limitations: no limitations Onset/Duration Of Symptoms: Days Current Symptoms Are (Timing): Still Present Severity: Moderate Past Medical History Reviewed: Historical Data, Nursing Documentation, Vital Signs Vital Signs: Last Vital Signs Temp 98.2 F 09/07/17 21:34 Pulse 86 09/07/17 21:34 Resp 18 09/07/17 21:34 BP 157/96 H 09/07/17 21:34 Pulse Ox 100 09/07/17 21:58 - Medical History PMH: Anxiety, Asthma (asthma), Diabetes, Seizures (Epilepsy (last episode was )) Denies: HIV, Chronic Kidney Disease Surgical History: Appendectomy (w/ gangrene) - [facility] Procedures BATH/SHOWER TECHNQ TREATMENT USING ASSIST EQUIPMENT (08/13/17) CENTRAL VENOUS CATHETER PLACEMENT WITH GUIDANCE (07/08/13) DRAINAGE OF PELVIC CAVITY, PERCUTANEOUS APPROACH (08/05/17) DRAINAGE OF PERINEUM SUBCU/FASCIA, OPEN APPROACH (08/05/17) DRAINAGE OF VULVA, OPEN APPROACH (08/05/17) DRESSING TECHNIQUES TREATMENT USING ASSIST EQUIPMENT (08/13/17) EXCIS DEBRIDE OF WOUND, INFECT, OR BURN (09/29/13) EXCISION OF GENITALIA SKIN, EXTERNAL APPROACH (08/05/17) EXCISION OF PELVIC SUBCU/FASCIA, PERC APPROACH (08/05/17) EXCISION OF PERINEUM SUBCU/FASCIA, PERC APPROACH (08/05/17) EXERCISE TRMT MUSCULOSK LOW BACK/LE W ASSIST EQUIP (08/13/17) GAIT TRAINING/AMBULAT TREATMENT USING ASSIST EQUIPMENT (08/13/17) INSERTION OF INFUSION DEV INTO SUP VENA CAVA, PERC APPROACH (08/05/17) OTHER APPENDECTOMY (07/08/13) PERITONEAL LAVAGE (07/08/13) Family History: States: No Known Family Hx - Social History Hx Tobacco Use: Yes Hx Alcohol Use: No Hx Substance Use: No - Immunization History Hx Tetanus Toxoid Vaccination: No Hx Influenza Vaccination: No Hx Pneumococcal Vaccination: No Review Of Systems Except As Marked, All Systems Reviewed And Found Negative. Constitutional: Negative for: Fever, Chills Gastrointestinal: Positive for: Abdominal Pain. Negative for: Nausea, Vomiting , Diarrhea Physical Exam - Physical Exam Appears: Non-toxic, No Acute Distress Skin: Normal Color, Warm Head: Atraumatic, Normacephalic Eye(s): bilateral: Normal Inspection Nose: Normal Oral Mucosa: Moist Neck: Supple Chest: Symmetrical, Tenderness (mild tenderness to left lower rib in the mid- clavicular line ), Other (no rash) Gastrointestinal/Abdominal: Soft, Other (dull to percussion in epigastrum and left-side abdomen, multiple scars, (-) McBurney's, (-) Lopez's) Extremity: Normal ROM Neurological/Psych: Oriented x3, Normal Speech, Normal Motor, Normal Sensation ED Course And Treatment - Laboratory Results Result Diagrams: 09/07/17 18:36 09/07/17 18:36 Lab Interpretation: Abnormal (+ elev glu) Urine POC: Negative (UDS + barbiturates (prescribed for szr)) O2 Sat by Pulse Oximetry: 100 (RA) Pulse Ox Interpretation: Normal Progress Note: Patient was given Toradol and ice pack for rib discomfort. Patient does not like ice pack because it is cold. Patient claims to have itching after taking Toradol.On re-evaluation, patient appears to have no rash or hives. Patient was given Benadryl 25 mg PO. Patient claims that she still has LUQ pain so she is requesting stronger narcotics. Patient has been offered Percocet but she declined. Patient would like Dilaudid. Reevaluation Time: 21:41 Reassessment Condition: Improved (pain free) Medical Decision Making Medical Decision Makin: called to bedside pt feels itchy after Toradol IV. Pt taking Percocet @ home for chronic pain issues- Rx for Perc #30 on 08/[address] Connors @ d/c from Rehab pt with no sig exam findings nor rash pt claims to have consumed the 30 tabs of oxycodone- UDS neg for narcs today Pt persists insisting on stronger pain meds for her chronic pain issues but seems NAD and only chronic L lower rib area mild tenderness is noted. Pt "allergic" to narcotics, though has taken percocet successfully. Percocet x 1 ordered. d/w Dr. Mejia who admitted pt 08/05, pt admitted for abd/vulvar pain and Pain to LUQ abd radiating to back was well documented, and CT abd/Pelvis @ that time no renal/ureteral stones, no L lower rib pathology Pt underwent rehab and has been home about 1 week. denies new injury to L lower ribs. Pt want to see Dr. Nirav Romero seeking a new PMD (pt does not want to return to Dr. Mejia as PMD) and NOT for oncological process, and was referred here for re-eval of same chronic pain issues noted 08/06/17 th non-contributory CT at that time. 1800: d/w Dr. Nirav Romero, asks for CT abd/pelvis to r/o renal colic though pt 's pain is L anterior chest/abd wall. Dr. Romero was unaware of prior abd CT having been done. After pt is made aware and findings discussed of prior CT 08/05 and d/w pt, she still requests repeat CT claiming the CT from 08/05/17 was never done. Results reviewed w pt who disbelieves the CT from 08/05 was performed. 1999: Percocet ordered, pt re-eval. no rash, no further pruritis. Pt declines Percocet, demands Dilaudid- "that's the only thing that works for my pains." Pt denied Dilaudid for mild chronic discomforts. Percocet tab was wasted- pt persists argumentative, and no apparent pain at any time. 2139: re-eval of L lower rib area tenderness c/w costochondritis. Demanding Dilaudid for mild chronic pains c/w drug-seeking behavior Abd fullness and dull to percussion epigastrum and L abd c/w constipation, probably narcotics induced vs poor ambulation due to CVA Disposition Doctor Will See Patient In The: Office Counseled Patient/Family Regarding: Studies Performed, Diagnosis - Disposition Referrals: Gorge Romero MD [Staff Provider] - Antonio Mejia MD [Staff Provider] - Disposition: HOME/ ROUTINE Disposition Time: 21:42 Condition: GOOD Additional Instructions: costochondritis: ice packs to the affected area 1/2 hour per hour, nothing hot. motrin/advil 400-600 mg every 6 hours as needed Constipation: drink a bottle of Mag Citrate (laxative) now and re-eval your abdominal discomfort after using the bathroom 2-3 times. Daily stool softners as needed Occasional laxative (perhaps monthly) as needed Remember: Narcotic pain relievers are notorious for causing constipation. Eat 7 fresh fruits and vegetables daily. Follow-up with Dr Romero or Dr. Mejia as needed. Instructions: Costochondritis, Chronic Pain (DC), Constipation, Adult (DC) Forms: NPR (Yoruba) - Clinical Impression Clinical Impression: Abdominal pain - Scribe Statement The provider has reviewed the documentation as recorded by the Johnsonibe Marie Cohn Provider Attestation: All medical record entries made by the Scribe were at my direction and personally dictated by me. I have reviewed the chart and agree that the record accurately reflects my personal performance of the history, physical exam, medical decision making, and the department course for this patient. I have also personally directed, reviewed, and agree with the discharge instructions and disposition.
[2017-09-07 18:45] LABS: BASO # 0.1 K/uL (0.0-0.2); BASO % 0.5 % (0.0-2.0); EOS # 0.4 K/uL (0.0-0.7); EOS % 3.2 % (0.0-4.0); LYMPH % 26.9 % (20.0-40.0); MEAN CELL VOLUME 94.9 fL (81.0-99.0); MEAN CORPUSCULAR HEMOGLOBIN 32.7 pg (27.0-31.0); MEAN CORPUSCULAR HGB CONC 34.4 g/dL (33.0-37.0); MONO # 0.7 K/uL (0.0-0.8); NEUT # 7.1 K/uL (1.8-7.0); NEUT % 63.4 % (50.0-75.0); NRBC % 0.1 % (0.0-2.0); RBC 3.56 Mil/uL (3.80-5.20); WHITE BLOOD COUNT 11.2 K/uL (4.8-10.8)
[2017-09-07 18:48] LABS: HEMOGLOBIN 11.6 g/dL (11.0-16.0)
[2017-09-07 18:51] LABS: SQUAMOUS EPITHIAL 2 /hpf (0-5); URINE BILIRUBIN NEGATIVE (NEGATIVE); URINE BLOOD 2+ (NEGATIVE); URINE CLARITY Clear (Clear); URINE COLOR Yellow (YELLOW); URINE GLUCOSE (UA) 3+ mg/dL (Normal); URINE HYALINE CAST 0-2 /lpf (0-2); URINE LEUKOCYTE ESTERASE NEG Leu/uL (Negative); URINE NITRATE NEGATIVE (NEGATIVE); URINE PROTEIN 3+ mg/dL (NEGATIVE); URINE UROBILINOGEN NORMAL mg/dL (0.2-1.0)
[2017-09-07 19:00] LABS: ALB/GLOB RATIO 0.9 (1.0-2.1); ALBUMIN 3.2 g/dL (3.5-5.0); ALT/SGPT 16 U/L (9-52); AST/SGOT 29 U/L (14-36); BLOOD UREA NITROGEN 12 mg/dL (7-17); CALCIUM 8.7 mg/dl (8.6-10.4); GFR AFRICAN-AMERICAN > 60; GFR NON-AFRICAN AMERICAN > 60; LIPASE 56 U/L (23-300)
[2017-09-07 19:03] LABS: BENZODIAZEPINES, UR NEGATIVE (NEGATIVE); OPIATES, UR NEGATIVE (NEGATIVE); PHENCYCLIDINE, UR NEGATIVE (NEGATIVE)
[2017-09-07 19:10] LABS: BARBITURATES, UR POSITIVE (NEGATIVE)
[2017-09-07] MEDS ORDERED: Iodixanol 320 mg/ml 150 ml Bottle IV ONE (19:13)
[2017-09-07] MEDS ORDERED: Oxycodone/Acetaminophen 5/325 mg Tab PO STA (19:41)
[2017-09-07] MEDS ORDERED: Oxycodone/Acetaminophen 5/325 mg Tab ONE (19:57)
[2017-09-07 21:34] VITALS: BP 157/96; PULSE 86; RESP 18; TEMP 98.2
--- NOTE | 2017-09-07 21:34 | CT ---
EXAM: CT Abdomen and Pelvis With Intravenous Contrast EXAM DATE/TIME: 09/07/2017 6:15 PM CLINICAL HISTORY: 42 years old, female; Pain; Other: Lower left rib; Additional info: L lower floating ribs tender, no fall TECHNIQUE: Axial computed tomography images of the abdomen and pelvis with intravenous contrast. All CT scans at this facility use one or more dose reduction techniques, viz.: automated exposure control; ma/kV adjustment per patient size (including targeted exams where dose is matched to indication; i.e. head); or iterative reconstruction technique. Coronal and sagittal reformatted images were created and reviewed. CONTRAST: 100 mL of VISIPAQUE administered intravenously. COMPARISON: CT - ABD PELVIS IV CONTRAST ONLY 2017-08-05 22:14 FINDINGS: Lower thorax: Heart size is normal. There is dependent atelectasis at the lung bases ABDOMEN: Liver: Liver is mildly enlarged.There is fatty infiltration of the liver. Gallbladder and bile ducts: Gallbladder is partially distended. There are multiple small dependent stones.Common duct is unremarkable. Pancreas: unremarkable Spleen: unremarkable Adrenals: unremarkable Kidneys and ureters: There is a nonobstructing right renal stone.Kidneys and ureters are otherwise unremarkable. Stomach and bowel: Stomach is partially distended with an air-fluid level. Rotation is normal. There is fluid and air throughout the small bowel. There is no obstruction. Terminal ileum is unremarkable. Appendix is not visualized. There is no pericecal inflammation. There is a moderately large amount of stool in the colon. There is scattered diverticulosis Appendix: See stomach and bowel PELVIS: Bladder: unremarkable Reproductive: Uterus and adnexal structures are not well demonstrated. ABDOMEN and PELVIS: Intraperitoneal space:There is no free air or free fluid. Bones/joints: There is sclerosis at the sacroiliac joints left greater than right. There is minimal spondylosis. Soft tissues: There is a small fat containing umbilical hernia. There is postsurgical change in the right lower anterior abdominal wall. There is a small nonobstructing hernia. Vasculature: There are calcified phleboliths. Lymph nodes: There is shotty para-aortic adenopathy. IMPRESSION: Gallstones; enlarged fatty liver; nonobstructing right renal stone, no ureteral stones or hydronephrosis; possible constipation; no CT findings of appendicitis or diverticulitis Additional nonemergent findings as described above.
[2017-09-07 21:42] VITALS: O2SAT 100
== END 2017-09-07 22:00 | disposition home or self-care (01) ==
LOC: C.ER 17:40
DX: R10.9 Unspecified abdominal pain (principal); E11.9 Type 2 diabetes mellitus without complications
CPT/HCPCS: 74177; 80053; 81001; 83690; 84703; 85025; 96374; 99284; G0480; J1885; Q9967